=== PATIENT | female | born 1940 | race Caucasian/White ===

== ENCOUNTER 2016-08-08 13:37 | Outpatient (RCR) | payer MEDICARE, BC ==
[~2016-08-08 13:37] MED LIST: ADV250-14 IH; ALBU0.632 INH; ALBU8.5H2 INH; CYAN10007 PO; DABI150C2 PO; DIGO125T PO; ESCI10TA48 PO; ESCI5TAB PO; HYDR25TA4 PO; LEVO137T24 PO; LOSA1TAB23 PO; MECL25TA56 PO; NF-ESOM40C PO; NF-TYLARTH PO; NIFE30TA94 PO; NIFE60TA78 PO; OLME40TA16 PO; PRD20T PO; RT-COMBINH INH
== END 2016-08-29 16:24 | disposition home or self-care (01) ==
PROVIDERS: ATTEND Orthopaedic Surgery
DX: M75.01 Adhesive capsulitis of right shoulder (principal)

== ENCOUNTER 2017-02-06 10:51 | Inpatient (IN) | payer MEDICARE, BC ==
[2017-02-06] VITALS (11 sets, daily range): BP systolic 89–135; BP diastolic 61–91
[~2017-02-06] VITALS: Ht 165.1 cm; Wt 110.7 kg
[~2017-02-06 10:51] MED LIST changes: +OLME40TA12 PO; -OLME40TA16 PO
--- OUTSIDE RECORDS SUMMARY | 2017-02-06 13:03 | XMS REPORT | Continuity of Care Document ---
Author Author [facility] Organization [facility] Address Unknown Phone Unavailable Allergies Active Description Code Type Severity Reaction Onset Reported/Identified Relationship to Patient Clinical Status Yes PCN,Codiene,Iodine,IVP Dye, Nylon, Metal, bandaids PCN,Codiene,Iodine,IVP Dye, Nylon, Metal, bandaids Unknown N/A 02/18/2014 Medications Problems Date Dx Coded Attending Type Code Diagnosis Diagnosed By 04/17/1623 REG BLACK DO Ot M75.01 ADHESIVE CAPSULITIS OF RIGHT SHOULDER 01/20/2013 SAMANTA MINER MD Ot 305.1 TOBACCO USE DISORDER 01/20/2013 SAMANTA MINER MD Ot 401.9 HYPERTENSION NOS 01/20/2013 SAMANTA MINER MD Ot 414.01 CORONARY ATHEROSCLEROSIS OF [place] CORON 01/20/2013 SAMANTA MINER MD Ot 424.0 MITRAL VALVE DISORDER 01/20/2013 SAMANTA MINER MD Ot 427.31 ATRIAL FIBRILLATION 01/20/2013 SAMANTA MINER MD Ot 429.3 CARDIOMEGALY 01/20/2013 SAMANTA MINER MD Ot 492.8 EMPHYSEMA NEC 01/20/2013 SAMANTA MINER MD Ot V15.08 ALLERGY TO RADIOGRAPHIC DYE 01/20/2013 SAMANTA MINER MD Ot V58.61 ANTICOAGULANTS,LT,CURRENT USE 01/20/2013 SAMNATA MINER MD Ot V58.66 LONG-TERM (CURRENT) USE OF ASPIRIN 01/20/2013 SAMANTA MINER MD Ot V58.69 OTH MED,LT,CURRENT USE 02/18/2014 ANTOLIN TALAMANTES MD Ot 244.9 HYPOTHYROIDISM NOS 02/18/2014 ANTOLIN TALAMANTES MD Ot 276.69 OTHER FLUID OVERLOAD 02/18/2014 ANTOLIN TALAMANTES MD Ot 278.00 OBESITY, NOS 02/18/2014 ANTOLIN TALAMANTES MD Ot 305.1 TOBACCO USE DISORDER 02/18/2014 ANTOLIN TALAMANTES MD Ot 311 DEPRESSIVE DISORDER NEC 02/18/2014 ANTOLIN TALAMANTES MD Ot 327.23 OBSTRUCTIVE SLEEP APNEA (ADULT) (PEDIATR 02/18/2014 ANTOLIN TALAMANTES MD Ot 386.11 BENIGN PARXYSMAL VERTIGO 02/18/2014 ANTOLIN TALAMANTES MD Ot 401.9 HYPERTENSION NOS 02/18/2014 ANTOLIN TALAMANTES MD Ot 424.0 MITRAL VALVE DISORDER 02/18/2014 ANTOLIN TALAMANTES MD Ot 424.1 AORTIC VALVE DISORDER 02/18/2014 ANTOLIN TALAMANTES MD Ot 427.81 SINOATRIAL NODE DYSFUNCT 02/18/2014 ANTOLIN TALAMANTES MD Ot 427.89 CARDIAC DYSRHYTHMIAS NEC 02/18/2014 ANTOLIN TALAMANTES MD Ot 493.90 ASTHMA, UNSPECIFIED 02/18/2014 ANTOLIN TALAMANTES MD Ot 715.36 LOC OSTEOARTH NOS-L/LEG 02/18/2014 ANTOLIN TALAMANTES MD Ot 799.02 HYPOXEMIA 02/18/2014 ANTOLIN TALAMANTES MD Ot E942.1 ADV EFF CARDIOTONICS 02/18/2014 ANTOLIN TALAMANTES MD Ot V04.81 ND FOR PROPHYLACTIC VACCIN AND INOCULATI 02/18/2014 ANTOLIN TALAMANTES MD Ot V12.54 PERSONAL HX OF TIA, CEREBRAL INFARCTION 02/18/2014 ANTOLIN TALAMANTES MD Ot V15.81 HX OF PAST NONCOMPLIANCE 02/18/2014 ANTOLIN TALAMANTES MD Ot V85.33 BODY MASS INDEX 33.0-33.9, ADULT 04/28/2015 KASANDRA RIVERS APRN Ot F17.210 NICOTINE DEPENDENCE, CIGARETTES, UNCOMPL 04/28/2015 KASANDRA RIVERS APRN Ot I51.7 CARDIOMEGALY 04/28/2015 KASANDRA RIVERS APRN Ot J44.1 CHRONIC OBSTRUCTIVE PULMONARY DISEASE W 12/27/2015 SAMANTA MINER MD Ot 397.0 TRICUSPID VALVE DISEASE 12/27/2015 SAMANTA MINER MD Ot 424.0 MITRAL VALVE DISORDER 12/27/2015 SAMANTA MINER MD Ot 786.09 RESPIRATORY ABNORM NEC 12/27/2015 SAMANTA MINER MD Ot 786.50 CHEST PAIN NOS 12/27/2015 SAMANTA MINER MD Ot 786.09 RESPIRATORY ABNORM NEC 12/27/2015 SAMANTA MINER MD Ot 786.50 CHEST PAIN NOS 12/27/2015 ALBIN ANN, ANTOLIN Pretty Ot 305.1 TOBACCO USE DISORDER 12/27/2015 ANTOLIN TALAMANTES MD Ot 786.2 COUGH 12/27/2015 ANTOLIN TALAMANTES MD Ot V76.12 OTH SCREEN MAMMO-MALIGN NEOPLASM OF HAM 12/27/2015 JAMAL HARVEY DO Ot 278.00 OBESITY, NOS 12/27/2015 JAMAL HARVEY DO Ot 300.00 ANXIETY STATE NOS 12/27/2015 JAMAL HARVEY DO Ot 305.1 TOBACCO USE DISORDER 12/27/2015 JAMAL HARVEY DO Ot 427.31 ATRIAL FIBRILLATION 12/27/2015 JAMAL HARVEY DO Ot 496 CHR AIRWAY OBSTRUCT NEC 12/27/2015 JAMAL HARVEY DO Ot 786.05 SHORTNESS OF BREATH 01/01/2016 [facility] Ot E78.2 MIXED HYPERLIPIDEMIA 01/01/2016 [facility] Ot I10 ESSENTIAL (PRIMARY) HYPERTENSION 01/01/2016 [facility] Ot I25.10 ATHSCL HEART DISEASE OF [place] CORONARY 01/01/2016 B[facility] Ot I48.0 PAROXYSMAL ATRIAL FIBRILLATION 01/01/2016 SAMANTA MINER MD Ot I10 ESSENTIAL (PRIMARY) HYPERTENSION 01/01/2016 SAMANTA MINER MD Ot I25.10 ATHSCL HEART DISEASE OF [place] CORONARY 01/01/2016 SAMANTA MINER MD Ot I48.0 PAROXYSMAL ATRIAL FIBRILLATION 01/01/2016 SAMANTA MINER MD Ot J43.9 EMPHYSEMA, UNSPECIFIED 01/01/2016 SAMANTA MINER MD Ot Z72.0 TOBACCO USE 01/01/2016 SAMANTA MINER MD Ot Z79.01 SCHEDULER CONVEYOR (CURRENT) USE OF ANTICOAGULANT 01/01/2016 SAMANTA MINER MD Ot Z79.899 OTHER USP (CURRENT) DRUG THERAPY 01/09/2016 ANTOLIN TALAMANTES MD Ot V76.12 OTH SCREEN MAMMO-MALIGN NEOPLASM OF HAM 01/09/2016 JAMAL HARVEY DO Ot 278.00 OBESITY, NOS 01/09/2016 JAMAL HARVEY DO Ot 300.00 ANXIETY STATE NOS 01/09/2016 JAMAL HARVEY DO Ot 305.1 TOBACCO USE DISORDER 01/09/2016 JAMAL HARVEY DO Ot 427.31 ATRIAL FIBRILLATION 01/09/2016 JAMAL HARVEY DO Ot 496 CHR AIRWAY OBSTRUCT NEC 01/09/2016 JAMAL HARVEY DO Ot 786.05 SHORTNESS OF BREATH 01/09/2016 SAMANTA MINER MD Ot I10 ESSENTIAL (PRIMARY) HYPERTENSION 01/09/2016 SAMANTA MINER MD Ot I25.10 ATHSCL HEART DISEASE OF [place] CORONARY 01/09/2016 SAMANTA MINER MD Ot I48.0 PAROXYSMAL ATRIAL FIBRILLATION 01/09/2016 SAMANTA MINER MD Ot J43.9 EMPHYSEMA, UNSPECIFIED 01/09/2016 SAMANTA MINER MD Ot Z72.0 TOBACCO USE 01/09/2016 SAMANTA MINER MD Ot Z79.01 SCHEDULER CONVEYOR (CURRENT) USE OF ANTICOAGULANT 01/09/2016 SAMANTA MINER MD Ot Z79.899 OTHER SCHEDULER CONVEYOR (CURRENT) DRUG THERAPY 01/09/2016 [facility] Ot E78.2 MIXED HYPERLIPIDEMIA 01/09/2016 [facility] Ot I10 ESSENTIAL (PRIMARY) HYPERTENSION 01/09/2016 [facility] Ot I25.10 ATHSCL HEART DISEASE OF [place] CORONARY 01/09/2016 [facility] Ot I48.0 PAROXYSMAL ATRIAL FIBRILLATION 01/15/2016 [facility] Ot E78.2 MIXED HYPERLIPIDEMIA 01/15/2016 [facility] Ot I10 ESSENTIAL (PRIMARY) HYPERTENSION 01/15/2016 [facility] Ot I25.10 ATHSCL HEART DISEASE OF [place] CORONARY 01/15/2016 [facility] Ot I48.0 PAROXYSMAL ATRIAL FIBRILLATION 01/19/2016 SAMANTA MINER MD Ot I10 ESSENTIAL (PRIMARY) HYPERTENSION 01/19/2016 SAMANTA MINER MD Ot I25.10 ATHSCL HEART DISEASE OF [place] CORONARY 01/19/2016 SAMANTA MINER MD Ot I48.0 PAROXYSMAL ATRIAL FIBRILLATION 01/19/2016 SAMANTA MINER MD, Ot J43.9 EMPHYSEMA, UNSPECIFIED 01/19/2016 SAMANTA MINER MD Ot Z72.0 TOBACCO USE 01/19/2016 SAMANTA MINER MD Ot Z79.01 SCHEDULER CONVEYOR (CURRENT) USE OF ANTICOAGULANT 01/19/2016 SAMANTA MINER MD Ot Z79.899 OTHER USP (CURRENT) DRUG THERAPY 01/19/2016 [facility] Ot E78.2 MIXED HYPERLIPIDEMIA 01/19/2016 [facility] Ot I10 ESSENTIAL (PRIMARY) HYPERTENSION 01/19/2016 [facility] Ot I25.10 ATHSCL HEART DISEASE OF [place] CORONARY 01/19/2016 [facility] Ot I48.0 PAROXYSMAL ATRIAL FIBRILLATION 08/01/2016 SAMANTA MINER MD Ot 397.0 TRICUSPID VALVE DISEASE 08/01/2016 SAMANTA MINER MD Ot 424.0 MITRAL VALVE DISORDER 08/01/2016 SAMANTA MINER MD Ot 786.09 RESPIRATORY ABNORM NEC 08/01/2016 SAMANTA MINER MD Ot 786.50 CHEST PAIN NOS 08/01/2016 SAMANTA MINER MD Ot 786.09 RESPIRATORY ABNORM NEC 08/01/2016 SAMANTA MINER MD Ot 786.50 CHEST PAIN NOS 08/01/2016 ANTOLIN TALAMANTES MD Ot 305.1 TOBACCO USE DISORDER 08/01/2016 ANTOLIN TALAMANTES MD Ot 786.2 COUGH 08/01/2016 ANTOLIN TALAMANTES MD Ot V76.12 OTH SCREEN MAMMO-MALIGN NEOPLASM OF HAM 08/01/2016 JAMAL HARVEY DO Ot 278.00 OBESITY, NOS 08/01/2016 JAMAL HARVEY DO Ot 300.00 ANXIETY STATE NOS 08/01/2016 JAMAL HARVEY DO Ot 305.1 TOBACCO USE DISORDER 08/01/2016 JAMAL HARVEY DO Ot 427.31 ATRIAL FIBRILLATION 08/01/2016 JAMAL HARVEY DO Ot 496 CHR AIRWAY OBSTRUCT NEC 08/01/2016 JAMAL HARVEY DO Ot 786.05 SHORTNESS OF BREATH 08/01/2016 SAMANTA MINER MD Ot I10 ESSENTIAL (PRIMARY) HYPERTENSION 08/01/2016 SAMANTA MINER MD Ot I25.10 ATHSCL HEART DISEASE OF [place] CORONARY 08/01/2016 SAMANTA MINER MD Ot I48.0 PAROXYSMAL ATRIAL FIBRILLATION 08/01/2016 SAMANTA MINER MD Ot J43.9 EMPHYSEMA, UNSPECIFIED 08/01/2016 SAMANTA MINER MD Ot Z72.0 TOBACCO USE 08/01/2016 SAMANTA MINER MD Ot Z79.01 SCHEDULER CONVEYOR (CURRENT) USE OF ANTICOAGULANT 08/01/2016 SAMANTA MINER MD Ot Z79.899 OTHER SCHEDULER CONVEYOR (CURRENT) DRUG THERAPY 08/01/2016 [facility] Ot E78.2 MIXED HYPERLIPIDEMIA 08/01/2016 [facility] Ot I10 ESSENTIAL (PRIMARY) HYPERTENSION 08/01/2016 [facility] Ot I25.10 ATHSCL HEART DISEASE OF [place] CORONARY 08/01/2016 [facility] Ot I48.0 PAROXYSMAL ATRIAL FIBRILLATION 08/08/2016 SAMANTA MINER MD Ot 397.0 TRICUSPID VALVE DISEASE 08/08/2016 SAMANTA MINER MD Ot 424.0 MITRAL VALVE DISORDER 08/08/2016 SAMANTA MINER MD Ot 786.09 RESPIRATORY ABNORM NEC 08/08/2016 SAMANTA MINER MD Ot 786.50 CHEST PAIN NOS 08/08/2016 SAMANTA MINER MD Ot 786.09 RESPIRATORY ABNORM NEC 08/08/2016 SAMANTA MINER MD Ot 786.50 CHEST PAIN NOS 08/08/2016 ANTOLIN TALAMANTES MD Ot 305.1 TOBACCO USE DISORDER 08/08/2016 ANTOLIN TALAMANTES MD Ot 786.2 COUGH 08/08/2016 ANTOLIN TALAMANTES MD Ot V76.12 OTH SCREEN MAMMO-MALIGN NEOPLASM OF HAM 08/08/2016 JAMAL HARVEY DO Ot 278.00 OBESITY, NOS 08/08/2016 JAMAL HARVEY DO Ot 300.00 ANXIETY STATE NOS 08/08/2016 JAMAL HARVEY DO Ot 305.1 TOBACCO USE DISORDER 08/08/2016 JAMAL HARVEY DO Ot 427.31 ATRIAL FIBRILLATION 08/08/2016 JAMAL HARVEY DO Ot 496 CHR AIRWAY OBSTRUCT NEC 08/08/2016 JAMAL HARVEY DO Ot 786.05 SHORTNESS OF BREATH 08/08/2016 SAMANTA MINER MD Ot I10 ESSENTIAL (PRIMARY) HYPERTENSION 08/08/2016 SAMANTA MINER MD Ot I25.10 ATHSCL HEART DISEASE OF [place] CORONARY 08/08/2016 SAMANTA MINER MD Ot I48.0 PAROXYSMAL ATRIAL FIBRILLATION 08/08/2016 SAMANTA MINER MD Ot J43.9 EMPHYSEMA, UNSPECIFIED 08/08/2016 SAMANTA MINER MD Ot Z72.0 TOBACCO USE 08/08/2016 SAMANTA MINER MD Ot Z79.01 SCHEDULER CONVEYOR (CURRENT) USE OF ANTICOAGULANT 08/08/2016 SAMANTA MINER MD Ot Z79.899 OTHER SCHEDULER CONVEYOR (CURRENT) DRUG THERAPY 08/08/2016 [facility] Ot E78.2 MIXED HYPERLIPIDEMIA 08/08/2016 [facility] Ot I10 ESSENTIAL (PRIMARY) HYPERTENSION 08/08/2016 [facility] Ot I25.10 ATHSCL HEART DISEASE OF [place] CORONARY 08/08/2016 B[facility] Ot I48.0 PAROXYSMAL ATRIAL FIBRILLATION 08/29/2016 REG BLACK DO Ot M75.01 ADHESIVE CAPSULITIS OF RIGHT SHOULDER Procedures Results Encounters ACCT No. Visit Date/Time Discharge Status Pt. Type Provider Facility Loc./Unit Complaint [id number] 08/08/2016 13:37:00 2016 16:24:00 DIS Outpatient REG BLACK DO [facility] REHAB RIGHT SHOULDER ADHESIVE CAPSULITIS [id number] 12/29/2015 11:58:00 2015 23:59:59 CLS Outpatient BINH WE[facility] CARD AFIB, CAD,HTN,HLP [id number] 12/27/2015 09:11:00 2015 23:59:59 CLS Outpatient SAMANTA MINER MD [facility] CATH AFIB,PALPITATIONS [id number] 04/28/2015 12:41:00 2014 14:40:00 DIS Emergency KASANDRA RIVERS APRN [facility] ER COUGH [id number] 02/18/2014 00:11:00 2013 11:10:00 DIS Inpatient ANTOLIN TALAMANTES MD [facility] CSD HYPOXIA FLUID OVERLOAD LIGHTHEADED VERTIGO [id number] 05/27/2013 15:14:00 2013 23:59:59 CLS Outpatient WES GONZALES JAMAL Rich [facility] RT COPD, EMPHYSEMA [id number] 05/05/2013 15:01:00 2012 23:59:59 CLS Outpatient ANTOLIN TALAMANTES MD [facility] RAD SCREENING [id number] 01/20/2013 12:57:00 2012 16:20:00 DIS Outpatient SAMANTA MINER MD [facility] CATH A-FIB [id number] 01/11/2013 07:46:00 2012 23:59:59 CLS Outpatient SAMANTA MINER MD [facility] RAD CP,DYSPNEA [id number] 12/31/2012 12:47:00 2012 23:59:59 CLS Outpatient SAMANTA MINER MD [facility] CARD CP,DYSPNEA [id number] 12/11/2012 10:17:00 2012 23:59:59 CLS Outpatient ANTOLIN TALAMANTES MD [facility] RAD ELEVATED COUGH,TOBACCOISM
[2017-02-06] MEDS ORDERED: DILTIAZEM 25 MG/5 ML INJ (CARDIZEM) VIAL IVP NR (13:30)
[2017-02-06] MEDS: DILTIAZEM DRIP 100 MG in SODIUM CHLORIDE (ADD-VANTAGE) 100 ML IV SCH (13:44)
[2017-02-06 14:23] LABS: MEAN PLATELET VOLUME 12.5 FL (7.4-10.4); RED BLOOD COUNT 4.97 10^6/uL (4.35-5.85); RED CELL DISTRIBUTION WIDTH 14.3 % (10.0-14.5)
[2017-02-06 14:32] LABS: INR 1.2 (0.8-1.4); PROTHROMBIN TIME PATIENT 14.9 SEC (12.2-14.7)
[2017-02-06 14:40] LABS: ALANINE AMINOTRANSFERASE 15 U/L (0-55); ALBUMIN 3.7 GM/DL (3.2-4.5); ANION GAP 11 MMOL/L (5-14); ASPARTATE AMINO TRANSFERASE 17 U/L (5-34); BILIRUBIN,TOTAL 0.6 MG/DL (0.1-1.0); BLOOD UREA NITROGEN 13 MG/DL (7-18); BUN/CREATININE RATIO 12; CALCIUM 9.2 MG/DL (8.5-10.1); CARBON DIOXIDE 25 MMOL/L (21-32); CHLORIDE 105 MMOL/L (98-107); CREATININE SERUM 1.05 MG/DL (0.60-1.30); GFR ESTIMATED 51; GLUCOSE 132 MG/DL (70-105); MAGNESIUM 1.4 MG/DL (1.8-2.4); POTASSIUM 3.4 MMOL/L (3.6-5.0); SODIUM 141 MMOL/L (135-145); TOTAL PROTEIN 6.9 GM/DL (6.4-8.2)
[2017-02-06 15:00] LABS: TROPONIN I < 0.30 NG/ML (<0.30)
[2017-02-06] MEDS ORDERED: LEVO125T PO (15:02)
[2017-02-06] MEDS ORDERED: FLUT1DIS26 INH (15:02)
[2017-02-06] MEDS ORDERED: CYAN10006 PO (15:02)
[2017-02-06] MEDS ORDERED: ACET-2267 PO (15:02)
[2017-02-06] MEDS ORDERED: OLME1TAB44 PO (15:02)
[2017-02-06] MEDS ORDERED: NYST60PO TOP (15:02)
[2017-02-06] MEDS ORDERED: ALBU0.63 NEB (15:02)
[2017-02-06] MEDS ORDERED: NIFE-7 PO (15:02)
[2017-02-06] MEDS ORDERED: NITR0.4T39 PO (15:02)
[2017-02-06] MEDS ORDERED: RT-ALBUINH IH (15:02)
[2017-02-06] MEDS ORDERED: OXYC-471 PO (15:02)
[2017-02-06] MEDS ORDERED: APIX5TAB PO (15:02)
[2017-02-06] MEDS ORDERED: ESOM20TA PO (15:02)
[2017-02-06] MEDS ORDERED: ESCI20TA45 PO (15:02)
--- NOTE | 2017-02-06 15:21 | Diagnostic Imaging Report ---
Upright AP and lateral views of the chest. INDICATION: Atrial fibrillation. COMPARISON: 04/28/2015. FINDINGS: There is mild/ moderate cardiac enlargement. There is mild pulmonary vascular congestion with suggestion of an element of chronic background interstitial thickening. No effusion or pneumothorax. Mediastinum and peter appear unremarkable. transformation lead projecting over the left chest wall anteriorly seen. IMPRESSION: Cardiomegaly with pulmonary vascular congestion. Dictated by: Dictated on workstation # [id number]
[2017-02-06] MEDS ORDERED: CATHETER FLUSH 10 ML SYR IV PRN (16:45)
[2017-02-06] MEDS ORDERED: NS IV 1000 ML 1,000 ML IV ONE (17:15)
[2017-02-06] MEDS ORDERED: RT-ADVAIR HFA 115/21 MCG PER PUFF IH PRN (20:00)
[2017-02-06] MEDS: APIXABAN 5 MG (ELIQUIS) TABLET PO SCH (21:21)
[2017-02-07] VITALS (24 sets, daily range): BP systolic 97–171; BP diastolic 61–117
[2017-02-07] MEDS: LEVOTHYROXINE 125 MCG (LEVOTHROID) TABLET PO SCH (06:40)
[2017-02-07] MEDS: DILTIAZEM DRIP 100 MG in SODIUM CHLORIDE (ADD-VANTAGE) 100 ML IV SCH (07:57)
[2017-02-07] MEDS ORDERED: LIDOCAINE 2% VISCOUS 15 ML UDC ONE (08:13)
[2017-02-07] MEDS ORDERED: proPOfol 200 MG/20 ML (DIPRIVAN) VIAL IV ONE ×2 (08:15→09:15)
[2017-02-07] MEDS ORDERED: NS IV 1000 ML 1,000 ML ONE (08:19)
--- NOTE | 2017-02-07 08:20 | Cardiology History & Physical ---
HPI-Cardiology Cardiology Consultation Date of Consultation 02/07/17 Date of Admission Time Seen by Provider: 08:17 Indication: atrial fibrillation HPI 76 years old lady with history of paroxysmal atrial fibrillation, coronary artery disease, seen in my office was in atrial fibrillation with rapid ventricular response, heart rate 130. She was having shortness of breath and active wheezing. I decided to admit her to the hospital start on Cardizem drip , this morning her heart rate is better controlled but still in atrial fibrillation. We discussed the management plan, discussed evaluating TERESO and possible electrical cardioversion. She denied any chest pain, her breathing is better today. She is overall feeling better. No palpitation. No syncope. PMH-Cardiology Immunizations Up To Date Tetanus Booster (DTap): Unknown Date of Pneumonia Vaccine: Jan 20, 2011 Date of Influenza Vaccine: Feb 20, 2012 Seasonal Allergies Seasonal Allergies: Yes Surgeries Yes (WEDGE RESECTION, breast reduction) Adenoidectomy, Gall Bladder, Appendectomy, Tonsillectomy, Breast, Orthopedic Respiratory Yes Cardiovascular Yes Atrial Fibrillation, Hypertension, Congestive Heart Failure Neurological Yes (pt reports having "small stroke" in ) Stroke Reproductive System Hx Reproductive Disorders: No Genitourinary No Gastrointestinal Yes Gastroesophageal Reflux Musculoskeletal No Endocrine Yes (hypoglycemia) Hypothyroidsim HEENT No Cancer No Psychosocial Yes Anxiety, Depression Integumentary No Blood Transfusions No Adverse Rxn to Transfusion: No Other PMHx past medical history as discussed below Social History Patient Social History Marrital Status: Employed/Student: retired Alcohol Use: Occasionally Uses Recreational Drug Use: No Smoking: Current every day smoker Dip or chew tobacco?: No Recent Foreign Travel: No Contact w/other who traveled: No Recent Infectious Disease Expo: No Family Hx Family History: Cardiovascular disease 19 FATHER 19 MOTHER Diabetes mellitus 19 MOTHER G8 BROTHER G8 SISTER Drug abuse G8 BROTHER G8 SISTER FH: lupus erythematosus Hypercholesterolemia 19 FATHER 19 MOTHER Hypertension 19 FATHER 19 MOTHER Myocardial infarction 19 FATHER 19 MOTHER ROS-Cardiology Review of Systems General: No Chills, No Night Sweats, No Fatigue, No Malaise, No Appetite HEENT: No Head Aches, No Visual Changes, No Eye Pain, No Ear Pain, No Dysphasia , No Sinus Congestion, No Post Nasal Drip, No Sore Throat Pulmonary: Dyspnea, No Cough, No Pleuritic Chest Pain Cardiovascular: Edema, No: Chest Pain, Palpitations, Orthopnea, Paroxysmal Noc. Dyspnea, Lt Headedness Gastrointestinal: No: Nausea, Vomiting, Abdominal Pain, Diarrhea, Constipation , Melena, Hematochezia Genitourinary: No Dysuria, No Frequency, No Incontinence, No Hematuria, No Retention Musculoskeletal: No: neck pain, shoulder pain, arm pain, back pain, hand pain, leg pain, foot pain Neurological: No: Weakness, Numbness, Incoordination, Change in speech, Confusion, Seizures Home Medications & Allergies Allergies: Uncoded Allergies: PCN,Codiene,Iodine,IVP Dye, Nylon, Metal, bandaids (Allergy, Unknown, ) Home Medication List Reviewed: Yes Exam-Cardiology Vital Signs Vital Signs Date Time Temp Pulse Resp B/P (MAP) Pulse Ox O2 Delivery O2 Flow Rate FiO2 02/07/17 07:57 97.6 77 12 140/94 92 02/07/17 07:57 Room Air 02/07/17 06:00 2.00 Exam General Appearance: Alert, Oriented X3, Cooperative, No Acute Distress HEENT: Atraumatic, PERRLA Respiratory: Clear to Auscultation, Normal Air Movement Cardiovascular: Normal S1, Normal S2, No Murmurs, Other (irregular rhythm, rate is better controlled) Abdominal: Normal Bowel Sounds, Soft, No Tenderness, No Hepatosplenomegaly, No Masses Extremities: No Clubbing, No Cyanosis, No Edema, Normal Pulses, No Tenderness/ Swelling Skin: No Rashes, No Breakdown, No Significant Lesion Neuro: Normal Gait, Normal Speech, Strength at 5/5 X4 Ext, Normal Tone, Sensation Intact Psych/Mental Status: Mental Status NL, Mood NL Results Labs Labs Laboratory Tests 02/06/17 14:00: White Blood Count 9.0, Red Blood Count 4.97, Hemoglobin 14.6, Hematocrit 43, Mean Corpuscular Volume 87, Mean Corpuscular Hemoglobin 29, Mean Corpuscular Hemoglobin Concent 34, Red Cell Distribution Width 14.3, Platelet Count 226, Mean Platelet Volume 12.5H, Prothrombin Time 14.9H, INR Comment 1.2, Activated Partial Thromboplast Time 32, Sodium Level 141, Potassium Level 3.4L, Chloride Level 105, Carbon Dioxide Level 25, Anion Gap 11, Blood Urea Nitrogen 13, Creatinine 1.05, Estimat Glomerular Filtration Rate 51, BUN/Creatinine Ratio 12 , Glucose Level 132H, Calcium Level 9.2, Magnesium Level 1.4L, Total Bilirubin 0.6, Aspartate Amino Transf (AST/SGOT) 17, Alanine Aminotransferase (ALT/SGPT) 15, Alkaline Phosphatase 73, Troponin I < 0.30, B-Type Natriuretic Peptide 226.0H, Total Protein 6.9, Albumin 3.7, Thyroid Stimulating Hormone (TSH) 0.10L A/P-Cardiology Admission Diagnosis paroxysmal atrial fibrillation Tachycardia Coronary artery disease Hypertension Shortness of breath Assessment/Plan Coronary artery disease, history of cardiac catheterization done in 2006 showing nonobstructive disease. Last stress test was done in December 2012 showed breast attenuation with mild ischemia at the mid to apical anterior wall. Currently asymptomatic. Patient is refusing cardiac catheterization, continue to monitor at this time Paroxysmal atrial fibrillation, back to atrial fibrillation with rapid ventricular response. Having history of wheezing and tachycardia, questionable intolerance to beta blockers, admitted and started on Cardizem drip, heart rate is better controlled, we discussed the management plan, planning for TERESO possible electrical cardioversion today. [id number] score is 2, yearly risk of stroke without oral anticoagulations 3.2 percent. Maintained on Eliquis 5 mg twice daily. Continue to monitor Tachycardia bradycardia episodes. Had episode of bradycardia on beta blockers. 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 Hypertension, I will continue monitoring blood pressure and adjust her medications. Hyperlipidemia, continue to monitor lipids. Pulmonary hypertension. PA pressure is 45 mmHg, secondary to COPD. COPD/emphysema. Chronic dyspnea. Follows with Dr. Roe Bilateral carotid stenosis, minimal bilaterally, nonobstructive disease, last ultrasound was done in June 2015. Continue to monitor. Tobaccoism, patient was educated and instructed on smoking cessation Severe allergy to IV contrast. Intolerance to MARCELINO inhibitor with severe cough. Chronic pedal edema, some improvement after hydrochlorothiazide was started. Depression. Right shoulder pain-I will refer to [id number] for further evaluation. Clinical Quality Measures DVT/VTE Risk/Contraindication: Risk Factor Score Per Nursin RFS Level Per Nursing on Admit: 4+=Very High SAMANTA MINER MD Feb 07, 2017 08:20
--- NOTE | 2017-02-07 08:21 | Cardiac Procedure Note-CS/ASA ---
Pre-Procedure Note Pre-Op Procedure Note H&P Reviewed The H&P was reviewed, patient examined and no changes noted. Date H&P Reviewed: Feb 07, 2017 Time H&P Reviewed: 08:21 Conscious Sedation Pre-Proced Time Reviewed: 08:21 ASA Class: 3 Airway Mallampati Classification: (hamilton appropriate class) I. II. III, IV Lungs Heart ASA score ASA 1: a normal healthy patient ASA 2: a patient with a mild systemic disease (mid diabetes, controlled hypertension, obesity x ASA 3: a patient with a severe systemic disease that limits activity (angina , COPD, prior Myocardial infarction) ASA 4: a patient with an incapacitating disease that is a constant threat to life (CHF, renal failure) ASA 5: a moribund patient not expected to survive 24 hrs. (ruptured aneurysm) ASA 6: a declared brain patient whose organs are being harvested. For emergent operations, add the letter E after the classification Grade 3 Sedation Plan: Analgesia, Amnesia, Plan communicated to team members, Discussed options with patient/fam, Discussed risks with patient/fam Note The patient is an appropriate candidate to undergo the planned procedure, sedation, and anesthesia. The patient immediately re-assessed prior to indication. SAMANTA MINER MD Feb 07, 2017 08:21
--- NOTE | 2017-02-07 08:27 | Consultation-Hospitalist ---
HPI History of Present Illness: HPI/Chief Complaint CC: "extreme tiredness" HPI: Pt is a 76yoCF who was directed admitted by Dr. Diaz for a-fib with RVR noted on event monitor. She reports her symptoms started on Friday after driving to and from [place]. She started to feel very tired and SOB. She states she laid in bed from Friday evening until Friday due to her fatigue. She also noticed that her blood pressure had been uncontrolled lately. She was called yesterday morning by Dr. Diaz's office and advised to present for direct admission due to her monitor showing a-fib with RVR. She states this has happened multiple times in the past and this is how she always feels when she's in a-fib. Source: patient, RN/MD, old records Exam Limitations: no limitations Date Seen 02/07/17 Attending Physician Yara Diaz MD PCP Ajith Stark MD Referring Physician Yara Diaz Date of Admission Feb 06, 2017 at 12:58 Home Medications & Allergies Home Medications Reviewed patient Home Medication Reconciliation Form Allergies Allergies Uncoded Allergies PCN,Codiene,Iodine,IVP Dye, Nylon, Metal, bandaids ( Allergy, Unknown, 02/18/14 ) Past Iwalonu-Rmljzt-Qqdslm Hx Patient Social History Marrital Status: Employed/Student: retired Alcohol Use: Occasionally Uses Number of Drinks Today: 0 Recreational Drug Use: No Smoking Status: Current Everyday Smoker Type Used: Cigarettes Physical Abuse Screen: No Sexual Abuse: No Recent Foreign Travel: No Contact w/other who traveled: No Recent Hopitalizations: No Recent Infectious Disease Expo: No Immunizations Up To Date Tetanus Booster (TDap): Unknown Pediatric: No Date of Pneumonia Vaccine: Jan 20, 2011 Date of Influenza Vaccine: Feb 20, 2012 Seasonal Allergies Seasonal Allergies: Yes Surgeries Yes (WEDGE RESECTION, breast reduction) Abdominal, Appendectomy, Gallbladder, Hysterectomy, Orthopedic, Tonsillectomy Respiratory Yes Currently Using CPAP: Yes (hasn't used since of S.O.) Cardiovascular Yes Atrial Fibrillation, Hypertension Neurological Yes (pt reports having "small stroke" in ) Stroke Reproductive System Hx Reproductive Disorders: No Genitourinary No Gastrointestinal Yes Gastroesophageal Reflux Musculoskeletal No Endocrine History of Endocrine Disorders: Yes (hypoglycemia) Endocrine Disorders: Hypothyroidsim HEENT History of HEENT Disorders: No Cancer No Psychosocial History of Psychiatric Problem: Yes Behavioral Health Disorders: Anxiety, Depression Integumentary History of Skin or Integumenta: No Blood Transfusions History of Blood Disorders: No Adverse Reaction to a Blood Tr: No Family Medical History Family Hx: Cardiovascular disease 19 FATHER 19 MOTHER Diabetes mellitus 19 MOTHER G8 BROTHER G8 SISTER Drug abuse G8 BROTHER G8 SISTER FH: lupus erythematosus Hypercholesterolemia 19 FATHER 19 MOTHER Hypertension 19 FATHER 19 MOTHER Myocardial infarction 19 FATHER 19 MOTHER Review of Systems Constitutional: weakness EENTM: no symptoms reported Respiratory: short of breath Cardiovascular: palpitations Gastrointestinal: loss of appetite Genitourinary: no symptoms reported Musculoskeletal: no symptoms reported Skin: no symptoms reported Psychiatric/Neurological: Depressed Physical Exam Physical Exam Vital Signs Vital Sign - Last 12Hours 02/06/17 02/06/17 13:25 19:00 Temp 97.7 Pulse 155 Resp 27 B/P (MAP) 125/82 Pulse Ox 95 O2 Delivery Room Air O2 Flow Rate 2.00 Capillary Refill : General Appearance: No Apparent Distress, WD/WN HEENT: PERRL/EOMI, Moist Mucous Membranes Neck: Supple Respiratory: Lungs Clear, No Respiratory Distress Cardiovascular: No Murmur, Irregularly Irregular Gastrointestinal: Normal Bowel Sounds, Non Tender, Soft Neurologic/Psychiatric: Alert, Oriented x3, No Aphasia Results Results/Procedures Lab Laboratory Tests 02/06/17 14:00 Assessment/Plan Admission Diagnosis A-fib with RVR Diagnosis/Problems Diagnosis/Problems (1) Atrial fibrillation with RVR Assessment & Plan: Long history of a-fib Rate well controlled on cardizem gtt Plan for cardioversion today per Dr. Diaz On Eliquis for anticoagulation (2) Hypothyroidism Status: Chronic Assessment & Plan: Continue home Synthroid (3) Essential (primary) hypertension Assessment & Plan: Well controlled currently on Cardizem (4) COPD (chronic obstructive pulmonary disease) Status: Chronic Assessment & Plan: Continue home inhalers No signs of acute exacerbation (5) Depression Status: Chronic Assessment & Plan: Reports mood has been down since SO Dottie in September Continue Lexapro when PO-ing (6) Prophylactic measure Assessment & Plan: Eliquis for anticoagulation, no further DVT ppx needed NPO for cardioversion Clinical Quality Measures DVT/VTE Risk/Contraindication: Risk Factor Score Per Nursin RFS Level Per Nursing on Admit: 4+=Very High ZANDRA,HALIMA M MD Feb 07, 2017 08:27
[2017-02-07] MEDS ORDERED: AMIODARONE FOR BOLUS 150 MG in D5W 100 ML IVPB 100 ML IV NR (08:45)
--- NOTE | 2017-02-07 08:45 | Cardiac Procedure Note ---
Cardiology Procedures Date of Procedure 02/07/17 BRIEF HISTORY: The patient is a 76 female with history of paroxysmal atrial fibrillation, admitted with atrial fibrillation and rapid ventricular response.. PROCEDURE NOTE: After explaining the procedure to the patient, all pros and cons were explained. The patient was sedated with assistance of anesthesia, DC cardioversion was delivered with 120 J and it was successful in terminating atrial fibrillation patient in sinus rhythm. IN CONCLUSION: Successful electrical cardioversion and terminating atrial fibrillation, patient maintained sinus rhythm. SAMANTA MINER MD Feb 07, 2017 08:45
--- NOTE | 2017-02-07 08:52 | Anesthesia-Procedure Note ---
Procedure Start/Stop Time Date of Procedure: Feb 07, 2017 Start Time: 08:30 Stop Time: 08:46 Procedures/Interventions Procedures Called by ICU staff to sedate patient for TERESO/Cardioversion. Chart reviewed. Patient ASA 3 with MP 3. A total of 130mg of propofol was given thru procedure. Patient tolerated well and care was turned over to ICU staff. ESTUARDO LISA CRNA Feb 07, 2017 08:52
[2017-02-07] MEDS ORDERED: LIDOCAINE 2% VISCOUS 15 ML UDC PO ONE (09:00)
[2017-02-07] MEDS ORDERED: NS IV 1000 ML 1,000 ML IV ONE (09:00)
[2017-02-07] MEDS: AMIODARONE INJECTION 450 MG in D5W IV SOLUTION (EXCEL) 250 ML IV SCH ×3 (09:19→18:58)
[2017-02-07] MEDS: APIXABAN 5 MG (ELIQUIS) TABLET PO SCH ×2 (11:02→21:46)
[2017-02-07] MEDS ORDERED: oxyCODONE/APAP 5/325MG (PERCOCET 5) TABLET PO PRN (12:00)
[2017-02-07] MEDS ORDERED: NON-FORMULARY MEDICATION 1 EA EA (Albuterol Sulfate 0.63 MG) NEB PRN (12:00)
[2017-02-07] MEDS ORDERED: RT-ALBUTEROL SULF 2.5 MG/3 ML PRE-MIX VIAL IH PRN (12:30)
[2017-02-07] MEDS: guaiFENesin/DM (ROBITUSSIN DM) 10 ML UDC PO PRN ×2 (15:45→21:46)
[2017-02-07] MEDS: BENZONATATE 100 MG (TESSALON) CAPSULE PO SCH (21:46)
[2017-02-07] MEDS: ACETAMINOPHEN 500 MG TAB (TYLENOL) PO PRN (21:46)
[2017-02-08] VITALS (16 sets, daily range): BP systolic 109–158; BP diastolic 42–91
[2017-02-08] MEDS: ACETAMINOPHEN 500 MG TAB (TYLENOL) PO PRN (04:23)
[2017-02-08 05:16] LABS: BASOPHILS % (AUTO) 0 % (0-10); EOSINOPHILS # (AUTO) 0.3 10^3/uL (0.0-0.3); EOSINOPHILS % (AUTO) 5 % (0-10); LYMPHOCYTES # (AUTO) 1.6 X 10^3 (1.0-4.0); LYMPHOCYTES % (AUTO) 28 % (12-44); MEAN CORPUSCULAR HEMOGLOBIN 30 PG (25-34); MEAN CORPUSCULAR HGB CONC 33 G/DL (32-36); MEAN CORPUSCULAR VOLUME 89 FL (80-99); MEAN PLATELET VOLUME 12.2 FL (7.4-10.4); MONOCYTES # (AUTO) 0.6 X 10^3 (0.0-1.0); MONOCYTES % (AUTO) 10 % (0-12); NEUTROPHILS # (AUTO) 3.3 X 10^3 (1.8-7.8); NEUTROPHILS % (AUTO) 57 % (42-75); PLATELET COUNT 184 10^3/uL (130-400); RED BLOOD COUNT 4.35 10^6/uL (4.35-5.85); RED CELL DISTRIBUTION WIDTH 14.1 % (10.0-14.5); WHITE BLOOD COUNT 5.8 10^3/uL (4.3-11.0)
[2017-02-08 05:36] LABS: ALANINE AMINOTRANSFERASE 14 U/L (0-55); ALBUMIN 3.3 GM/DL (3.2-4.5); ANION GAP 9 MMOL/L (5-14); ASPARTATE AMINO TRANSFERASE 18 U/L (5-34); BILIRUBIN,TOTAL 0.6 MG/DL (0.1-1.0); BLOOD UREA NITROGEN 12 MG/DL (7-18); BUN/CREATININE RATIO 14; CALCIUM 8.7 MG/DL (8.5-10.1); CARBON DIOXIDE 24 MMOL/L (21-32); CHLORIDE 108 MMOL/L (98-107); CREATININE SERUM 0.87 MG/DL (0.60-1.30); GFR ESTIMATED > 60; GLUCOSE 122 MG/DL (70-105); MAGNESIUM 1.7 MG/DL (1.8-2.4); PHOSPHORUS 3.5 MG/DL (2.3-4.7); POTASSIUM 3.9 MMOL/L (3.6-5.0); SODIUM 141 MMOL/L (135-145); TOTAL PROTEIN 6.2 GM/DL (6.4-8.2)
[2017-02-08] MEDS ORDERED: KCL 20 MEQ TAB (K-DUR) PO SCH (06:00)
[2017-02-08] MEDS: MAGNESIUM 1 GM/100 ML IVPB 100 ML IV SCH ×4 (06:00→08:18)
[2017-02-08] MEDS ORDERED: POTASSIUM CL 10MEQ/50ML IVPB 50 ML IV SCH (06:00)
[2017-02-08] MEDS: LEVOTHYROXINE 125 MCG (LEVOTHROID) TABLET PO SCH (07:54)
[2017-02-08] MEDS: APIXABAN 5 MG (ELIQUIS) TABLET PO SCH (08:15)
[2017-02-08] MEDS: BENZONATATE 100 MG (TESSALON) CAPSULE PO SCH ×2 (08:15→12:30)
[2017-02-08] MEDS ORDERED: AMIODARONE 200 MG (CORDARONE) TAB PO NR (08:15)
--- NOTE | 2017-02-08 08:16 | Progress Note-Hospitalist ---
Subjective HPI/CC On Admission Date Seen by Provider: Feb 08, 2017 Time Seen by Provider: 07:40 CC: "extreme tiredness" HPI: Pt is a 76yoCF who was directed admitted by Dr. Diaz for a-fib with RVR noted on event monitor. She reports her symptoms started on Friday after driving to and from [place]. She started to feel very tired and SOB. She states she laid in bed from Friday evening until Friday due to her fatigue. She also noticed that her blood pressure had been uncontrolled lately. She was called yesterday morning by Dr. Diaz's office and advised to present for direct admission due to her monitor showing a-fib with RVR. She states this has happened multiple times in the past and this is how she always feels when she's in a-fib. Subjective/Events-last exam Pt reports feeling better today since her cardioversion. She is ready to DC home. Objective Exam Vital Signs Vital Sign - Last 12Hours 02/06/17 02/06/17 02/07/17 13:25 19:00 15:52 Temp 97.7 Pulse 155 Resp 27 B/P (MAP) 125/82 Pulse Ox 95 O2 Delivery Room Air O2 Flow Rate 2.00 FiO2 28 Capillary Refill : General Appearance: No Apparent Distress, WD/WN Respiratory: No Accessory Muscle Use, No Respiratory Distress, Wheezing Cardiovascular: No JVD, No Murmur, Normal Peripheral Pulses, Bradycardia Gastrointestinal: Normal Bowel Sounds, Non Tender, Soft Neurologic/Psychiatric: Alert, Oriented x3 Results/Procedures Lab Laboratory Tests 02/08/17 04:33 Assessment/Plan Assessment and Plan Assess & Plan/Chief Complaint a-fib with RVR Diagnosis/Problems Diagnosis/Problems (1) Atrial fibrillation with RVR Assessment & Plan: Long history of a-fib Converted to sinus rhythm with cardioversion yesterday Currently on amio gtt On Eliquis for anticoagulation Managed per primary (Cards) (2) Hypothyroidism Status: Chronic Assessment & Plan: Continue home Synthroid (3) Essential (primary) hypertension Assessment & Plan: Well controlled (4) COPD (chronic obstructive pulmonary disease) Status: Chronic Assessment & Plan: Continue home inhalers No signs of acute exacerbation Resumed home tessalon (5) Depression Status: Chronic Assessment & Plan: Reports mood has been down since SO Dottie in September Continue Lexapro (6) Prophylactic measure Assessment & Plan: Eliquis for anticoagulation, no further DVT ppx needed Diet Saline Lock OK to [place] home from my standpoint HALIMA DE PAZ MD Feb 08, 2017 08:16
[2017-02-08] MEDS ORDERED: BENZ-36 PO (08:19)
[2017-02-08] MEDS ORDERED: NON-FORMULARY MEDICATION 1 EA EA (Escitalopram Oxalate 20 MG) PO SCH (09:00)
--- NOTE | 2017-02-08 12:09 | Diagnostic Imaging Report ---
INDICATION: Shortness of breath COMPARISON: 02/06/17 FINDINGS: Single view of the chest demonstrates cardiac enlargement with chronic interstitial changes. Superimposed acute process not excluded. There is no pneumothorax or large effusion. IMPRESSION: Chronic interstitial changes with possibly superimposed central vascular congestion or trace pulmonary edema. Dictated by: Dictated on workstation # [id number]
[2017-02-08] MEDS ORDERED: OLMESARTAN 20 MG (BENICAR) TABLET PO SCH (12:15)
[2017-02-08] MEDS ORDERED: NON-FORMULARY MEDICATION 1 EA EA (Olmesartan/Hydrochlorothiazide (Olmesartan-Hctz 40-25 mg PO SCH (12:15)
[2017-02-08] MEDS ORDERED: HYDROCHLOROTHIAZIDE 25 MG (HCTZ) TAB PO SCH (12:15)
[2017-02-08] MEDS: guaiFENesin/DM (ROBITUSSIN DM) 10 ML UDC PO PRN (12:30)
--- NOTE | 2017-02-08 12:31 | Cardiology Progress Note ---
Cardiology SOAP Progress Note Subjective: no cardiac symptoms Objective: I&O/Vital Signs Vital Sign - Last 12Hours 02/08/17 02/08/17 02/08/17 02/08/17 01:00 01:00 02:00 03:00 Pulse 56 59 51 57 Resp 20 27 13 B/P (MAP) 109/62 132/87 147/80 Pulse Ox 90 94 93 O2 Delivery Room Air Room Air Room Air 02/08/17 02/08/17 02/08/17 02/08/17 04:00 04:00 05:00 06:00 Pulse 53 50 51 Resp 34 17 17 B/P (MAP) 128/76 142/88 129/87 Pulse Ox 93 92 93 O2 Delivery Room Air Room Air Room Air Room Air 02/08/17 02/08/17 02/08/17 02/08/17 07:00 07:00 08:00 08:22 Temp 97.5 Pulse 49 50 49 Resp 14 14 B/P (MAP) 139/78 158/91 Pulse Ox 95 95 O2 Delivery Room Air Room Air Room Air 02/08/17 02/08/17 02/08/17 02/08/17 08:30 09:00 10:00 11:00 Pulse 55 52 51 Resp 16 18 17 B/P (MAP) 125/70 125/70 125/70 Pulse Ox 91 93 91 O2 Delivery Room Air Room Air Room Air Room Air Weight (Pounds): 244 Weight (Ounces): 5.0 Weight (Calculated Kilograms): 110.641964 Constitutional: No appears stated age, No AAO x 3, No apparent distress, No PERRL, No well-developed, No well-nourished, No other Respiratory: wheezing Cardiovascular: No regular rate-rhythm, No irregularly irregular, No extra beats, No parasternal heave is noted, No JVD, No edema, No bradycardia, No tachycardia, No point of maximal impulse, No cardiac thrills are palpable, No S1 and S2, No gallop/S3, No gallop/S4, No diastolic murmur, No systolic murmur, No friction rub, No click, No other Gastrointestional: No tender, No soft, No round, No distended, No pulsatile mass, No organomegaly, No guarding, No rebound, No tenderness, No hernia, No mass, No audible bowel sounds, No abnormal bowel sounds, No abdominal bruits, No spleenomegaly, No other Extremities: No normal range of motion, No non-tender, No normal inspection, No pedal edema, No calf tenderness, No normal capillary refill, No pelvis stable , No calf tenderness, No inflammation, No pedal edema, No slow capillary refill , No swelling, No other, No abrasion, No clubbing, No cyanosis, No ecchymosis, No laceration, No no lower extremity edema bilateral, No significant edema, No tenderness, No wound Neurologic/Psychiatric: No homeworker II-XII nml as tested, No no motor/sensory deficits, No alert, No normal mood/affect, No oriented x 3, No abnormal cerebellar tests, No abnormal homeworker II-XII, No abnormal gait, No aphasia, No EOM palsy, No facial droop, No motor weakness, No sensory deficit, No depressed affect, No disoriented x 3, No other, No grossly intact, No power is 5/5 both on sides Results/Procedures: Labs Laboratory Tests 02/08/17 04:33: White Blood Count 5.8, Red Blood Count 4.35, Hemoglobin 12.9, Hematocrit 39, Mean Corpuscular Volume 89, Mean Corpuscular Hemoglobin 30, Mean Corpuscular Hemoglobin Concent 33, Red Cell Distribution Width 14.1, Platelet Count 184, Mean Platelet Volume 12.2H, Neutrophils (%) (Auto) 57, Lymphocytes (%) (Auto) 28 , Monocytes (%) (Auto) 10, Eosinophils (%) (Auto) 5, Basophils (%) (Auto) 0, Neutrophils # (Auto) 3.3, Lymphocytes # (Auto) 1.6, Monocytes # (Auto) 0.6, Eosinophils # (Auto) 0.3, Basophils # (Auto) 0.0, Sodium Level 141, Potassium Level 3.9, Chloride Level 108H, Carbon Dioxide Level 24, Anion Gap 9, Blood Urea Nitrogen 12, Creatinine 0.87, Estimat Glomerular Filtration Rate > 60, BUN/ Creatinine Ratio 14, Glucose Level 122H, Calcium Level 8.7, Phosphorus Level 3.5 , Magnesium Level 1.7L, Total Bilirubin 0.6, Aspartate Amino Transf (AST/SGOT) 18, Alanine Aminotransferase (ALT/SGPT) 14, Alkaline Phosphatase 77, Total Protein 6.2L, Albumin 3.3 A/P: Assessment/Dx: atrial fibrillation with rapid ventricular rate, COPD, Hypertension Plan: status post-transesophageal echocardiogram and cardioversion. Patient is in sinus rhythm. Continue amiodarone 100 mg daily. We'll see Dr. Diaz next week. Continue Eliquis. Active wheezing which according to the patient she always has. We'll do a breathing treatment. no respiratory distress. On room air oxygen saturation is over 96 percent. Mild elevation of blood pressure noted. We will recommend starting her on her outpatient antihypertensive. Thank you for your consultation. Please call me if you have any questions. Juan Ramon Garcia MD, FACP, FACC, FSCAI, FHRS, CCDS Interventional Cardiology Cardiac Electrophysiology Vascular Medicine and Endovascular Interventions Diagnosis/Problems Diagnosis/Problems (1) Atrial fibrillation with RVR Assessment & Plan: Long history of a-fib Converted to sinus rhythm with cardioversion yesterday Currently on amio gtt On Eliquis for anticoagulation Managed per primary (Cards) (2) Hypothyroidism Status: Chronic Assessment & Plan: Continue home Synthroid (3) Essential (primary) hypertension Assessment & Plan: Well controlled (4) COPD (chronic obstructive pulmonary disease) Status: Chronic Assessment & Plan: Continue home inhalers No signs of acute exacerbation Resumed home tessalon (5) Depression Status: Chronic Assessment & Plan: Reports mood has been down since SO Dottie in September Continue Lexapro (6) Prophylactic measure Assessment & Plan: Eliquis for anticoagulation, no further DVT ppx needed Diet Saline Lock OK to DC home from my standpoint Rich GARCIA MD Feb 08, 2017 12:31
--- NOTE | 2017-02-08 12:33 | Discharge Inst-Cardiology ---
Discharge Inst-Cardiac Activity & Diet Discharge Diet: Cardiac Diet Rich PHIPPS MD Feb 08, 2017 12:33
[2017-02-08] MEDS ORDERED: AMIO100T4 PO (12:35)
--- NOTE | 2017-02-08 12:37 | Cardiology Discharge Summary ---
Diagnosis/Chief Complaint Date of Admission Feb 06, 2017 at 12:58 Date of Discharge 02/08/2017 Admission Diagnosis atrial fibrillation with rapid ventricular rate Final/Discharge Diagnosis atrial fibrillation successful cardioversion, COPD, hypertension Chief Complaint/HPI Chief Complaint/HPI palpitations Discharge Summary Procedures transesophageal echocardiogram and cardioversion Discharge Physical Examination stable Expiratory wheezing heard Hospital Course stable Discussion & Recommendations Discussion follow-up with Dr. Diaz within the next one week. Follow up appt.: Dr. Diaz and Dr. Stark Dicharge Diet: Cardiac Diet Activity as Tolerated: Yes Home Medications Reviewed patient Home Medication Reconciliation Form Discharge Home Medications: Reviewed and agree with Discharge Medication list on patient's Discharge Instruction sheet Condition at discharge stable Diagnosis/Problems Diagnosis/Problems (1) Atrial fibrillation with RVR Assessment & Plan: Long history of a-fib Converted to sinus rhythm with cardioversion yesterday Currently on amio gtt On Eliquis for anticoagulation Managed per primary (Cards) (2) Hypothyroidism Status: Chronic Assessment & Plan: Continue home Synthroid (3) Essential (primary) hypertension Assessment & Plan: Well controlled (4) COPD (chronic obstructive pulmonary disease) Status: Chronic Assessment & Plan: Continue home inhalers No signs of acute exacerbation Resumed home tessalon (5) Depression Status: Chronic Assessment & Plan: Reports mood has been down since SO Dottie in September Continue Lexapro (6) Prophylactic measure Assessment & Plan: Eliquis for anticoagulation, no further DVT ppx needed HH Diet Saline Lock OK to DC home from my standpoint Clinical Quality Measures DVT/VTE Risk/Contraindication: Risk Factor Score Per Nursin RFS Level Per Nursing on Admit: 4+=Very High Rich PHIPPS MD Feb 08, 2017 12:37
[2017-02-08] MEDS ORDERED: PRED10TA22 PO (12:43)
== END 2017-02-08 15:20 | disposition home or self-care (01) | DRG 310 ==
LOC: ICU 12:58
PROVIDERS: ADMIT Internal Medicine Cardiovascular Disease; ATTEND Internal Medicine Cardiovascular Disease
PROC: 5A2204Z Restoration of Cardiac Rhythm, Single (ICD-10-PCS; principal; 2017-02-07)
DX: I48.0 Paroxysmal atrial fibrillation (principal); J44.9 Chronic obstructive pulmonary disease, unspecified; I10 Essential (primary) hypertension; I27.2 Other secondary pulmonary hypertension; E03.9 Hypothyroidism, unspecified; F32.9 Major depressive disorder, single episode, unspecified; I25.10 Atherosclerotic heart disease of native coronary artery without angina pectoris; K21.9 Gastro-esophageal reflux disease without esophagitis; E78.5 Hyperlipidemia, unspecified; I65.23 Occlusion and stenosis of bilateral carotid arteries; F17.210 Nicotine dependence, cigarettes, uncomplicated
CPT/HCPCS: 36415; 71010; 71020; 80053; 83735; 83880; 84100; 84439; 84443; 84484; 85025; 85027; 85610; 85730; 93005; 93306; 93320; 93325; 94640; 94760

== ENCOUNTER 2017-05-08 15:42 | Emergency (ER) | payer MEDICARE, BC ==
[~2017-05-08] VITALS: Ht 167.6 cm; Wt 90.7 kg
[~2017-05-08 15:42] MED LIST changes: +ACET-2267 PO; +ALBU0.63 NEB; +AMIO100T4 PO; +APIX5TAB PO; +BENZ-36 PO; +CYAN10006 PO; +ESCI20TA45 PO; +ESOM20TA PO; +FLUT1DIS26 INH; +LEVO125T PO; +NIFE-7 PO; +NITR0.4T39 PO; +NYST60PO TOP; +OLME1TAB44 PO; +OXYC-471 PO; +PRED10TA22 PO; +RT-ALBUINH IH
--- OUTSIDE RECORDS SUMMARY | 2017-05-08 15:59 | XMS REPORT | Continuity of Care Document ---
Author Author [facility] Organization [facility] Address Unknown Phone Unavailable Allergies Active Description Code Type Severity Reaction Onset Reported/Identified Relationship to Patient Clinical Status Yes PCN,Codiene,Iodine,IVP Dye, Nylon, Metal, bandaids PCN,Codiene,Iodine,IVP Dye, Nylon, Metal, bandaids Unknown N/A 02/18/2014 Medications There is no data. Problems Date Dx Coded Attending Type Code Diagnosis Diagnosed By 04/17/1623 REG BLACK DO Ot M75.01 ADHESIVE CAPSULITIS OF RIGHT SHOULDER 01/20/2013 SAMANTA MINER MD Ot 305.1 TOBACCO USE DISORDER 01/20/2013 SAMANTA MINER MD Ot 401.9 HYPERTENSION NOS 01/20/2013 SAMANTA MINER MD Ot 414.01 CORONARY ATHEROSCLEROSIS OF [place] CORON 01/20/2013 SAMANTA MINER MD Ot 424.0 MITRAL VALVE DISORDER 01/20/2013 SAMANTA MINER MD Ot 427.31 ATRIAL FIBRILLATION 01/20/2013 SAMANTA MINER MD Ot 429.3 CARDIOMEGALY 01/20/2013 SAMANTA MINER MD Ot 492.8 EMPHYSEMA NEC 01/20/2013 SAMANTA MNIER MD Ot V15.08 ALLERGY TO RADIOGRAPHIC DYE 01/20/2013 SAMANTA MINER MD Ot V58.61 ANTICOAGULANTS,LT,CURRENT USE 01/20/2013 SAMANTA MINER MD Ot V58.66 LONG-TERM (CURRENT) USE [...] WEST Ot I25.10 ATHSCL HEART DISEASE OF [place] CORONARY 01/01/2016 BINH WEST Ot I48.0 PAROXYSMAL ATRIAL FIBRILLATION 01/01/2016 SAMANTA MINER MD Ot I10 ESSENTIAL (PRIMARY) HYPERTENSION 01/01/2016 SAMANTA MINER MD Ot I25.10 ATHSCL HEART DISEASE OF [place] CORONARY 01/01/2016 SAMANTA MINER MD Ot I48.0 PAROXYSMAL ATRIAL FIBRILLATION 01/01/2016 SAMANTA MINER MD Ot J43.9 EMPHYSEMA, UNSPECIFIED 01/01/2016 SAMANTA MINER MD Ot Z72.0 TOBACCO USE 01/01/2016 SAMANTA MINER MD Ot Z79.01 ENROLLMENT NURSE (CURRENT) USE OF ANTICOAGULANT 01/01/2016 SAMANTA MINER MD Ot Z79.899 OTHER ENROLLMENT NURSE (CURRENT) DRUG THERAPY 01/09/2016 ANTOLIN TALAMANTES MD Ot V76.12 OTH SCREEN MAMMO-MALIGN NEOPLASM OF [place] 01/09/2016 JAMAL HARVEY DO Ot 278.00 OBESITY, NOS 01/09/2016 JAMAL HARVEY DO Ot 300.00 ANXIETY STATE NOS 01/09/2016 WES JAMAL GONZALES Ot 305.1 TOBACCO USE DISORDER 01/09/2016 JAMAL HARVEY DO Ot 427.31 ATRIAL FIBRILLATION 01/09/2016 JAMAL HARVEY DO Ot 496 CHR AIRWAY OBSTRUCT NEC 01/09/2016 JAMAL HARVEY DO Ot 786.05 SHORTNESS OF BREATH 01/09/2016 SAMANTA MINER MD Ot I10 ESSENTIAL (PRIMARY) HYPERTENSION 01/09/2016 SAMANTA MINER MD Ot I25.10 ATHSCL HEART DISEASE OF [place] CORONARY 01/09/2016 SAMANTA MINRE MD Ot I48.0 PAROXYSMAL ATRIAL FIBRILLATION 01/09/2016 SAMANTA MINER MD Ot J43.9 EMPHYSEMA, UNSPECIFIED 01/09/2016 SAMANTA MINER MD Ot Z72.0 TOBACCO USE 01/09/2016 SAMANTA MINER MD Ot Z79.01 ENROLLMENT NURSE (CURRENT) USE OF ANTICOAGULANT 01/09/2016 SAMANTA MINER MD Ot Z79.899 OTHER SNF (CURRENT) DRUG THERAPY 01/09/2016 BINH WEST Ot E78.2 MIXED HYPERLIPIDEMIA 01/09/2016 BINH WEST Ot I10 ESSENTIAL (PRIMARY) HYPERTENSION 01/09/2016 BIN[facility] WEST Ot I25.10 ATHSCL HEART DISEASE OF [place] CORONARY 01/09/2016 BINH WEST Ot I48.0 PAROXYSMAL ATRIAL FIBRILLATION 01/15/2016 BINH WEST Ot E78.2 MIXED HYPERLIPIDEMIA 01/15/2016 BINH WEST Ot I10 ESSENTIAL (PRIMARY) HYPERTENSION 01/15/2016 BINH WEST Ot I25.10 ATHSCL HEART DISEASE OF [place] CORONARY 01/15/2016 BINH WEST Ot I48.0 PAROXYSMAL ATRIAL FIBRILLATION 01/19/2016 SAMANTA MINER MD Ot I10 ESSENTIAL (PRIMARY) HYPERTENSION 01/19/2016 SAMANTA MINER MD Ot I25.10 ATHSCL HEART DISEASE OF [place] CORONARY 01/19/2016 SAMANTA MINER MD Ot I48.0 PAROXYSMAL ATRIAL FIBRILLATION 01/19/2016 SAMANTA MINER MD Ot J43.9 EMPHYSEMA, UNSPECIFIED 01/19/2016 SAMANTA MINER MD Ot Z72.0 TOBACCO USE 01/19/2016 SAMANTA MINER MD Ot Z79.01 SNF (CURRENT) USE OF ANTICOAGULANT 01/19/2016 SAMANTA MINER MD Ot Z79.899 OTHER ENROLLMENT NURSE (CURRENT) DRUG THERAPY 01/19/2016 BINH WEST Ot E78.2 MIXED HYPERLIPIDEMIA 01/19/2016 BINH WEST Ot I10 ESSENTIAL (PRIMARY) HYPERTENSION 01/19/2016 BINH WEST Ot I25.10 ATHSCL HEART DISEASE OF [place] CORONARY 01/19/2016 BINH WEST Ot I48.0 PAROXYSMAL [...] MD Ot I25.10 ATHSCL HEART DISEASE OF [place] CORONARY 08/01/2016 SAMANTA MINER MD Ot I48.0 PAROXYSMAL ATRIAL FIBRILLATION 08/01/2016 SAMANTA MINER MD Ot J43.9 EMPHYSEMA, UNSPECIFIED 08/01/2016 SAMANTA MINER MD Ot Z72.0 TOBACCO USE 08/01/2016 SAMANTA MINER MD Ot Z79.01 ENROLLMENT NURSE (CURRENT) USE OF ANTICOAGULANT 08/01/2016 SAMANTA MINER MD Ot Z79.899 OTHER ENROLLMENT NURSE (CURRENT) DRUG THERAPY 08/01/2016 BINH WEST Ot E78.2 MIXED HYPERLIPIDEMIA 08/01/2016 BINH WEST Ot I10 ESSENTIAL (PRIMARY) HYPERTENSION 08/01/2016 BIN[facility] WEST Ot I25.10 ATHSCL HEART DISEASE OF [place] CORONARY 08/01/2016 BINH WEST Ot I48.0 PAROXYSMAL [...] MD Ot I25.10 ATHSCL HEART DISEASE OF [place] CORONARY 08/08/2016 SAMANTA MINER MD Ot I48.0 PAROXYSMAL ATRIAL FIBRILLATION 08/08/2016 SAMANTA MINER MD, Ot J43.9 EMPHYSEMA, UNSPECIFIED 08/08/2016 SAMANTA MINER MD Ot Z72.0 TOBACCO USE 08/08/2016 SAMANTA MINER MD Ot Z79.01 ENROLLMENT NURSE (CURRENT) USE OF ANTICOAGULANT 08/08/2016 SAMANTA MINER MD Ot Z79.899 OTHER ENROLLMENT NURSE (CURRENT) DRUG THERAPY 08/08/2016 BINH WE[facility] Ot E78.2 MIXED HYPERLIPIDEMIA 08/08/2016 BINH WEST Ot I10 ESSENTIAL (PRIMARY) HYPERTENSION 08/08/2016 BIN[facility] WEST Ot I25.10 ATHSCL HEART DISEASE OF [place] CORONARY 08/08/2016 BINH WEST Ot I48.0 PAROXYSMAL ATRIAL FIBRILLATION 08/29/2016 REG BLACK DO Ot M75.01 ADHESIVE CAPSULITIS OF RIGHT SHOULDER 02/08/2017 SAMANTA MINER MD Ot E03.9 HYPOTHYROIDISM, UNSPECIFIED 02/08/2017 SAMANTA MINER MD Ot E78.5 HYPERLIPIDEMIA, UNSPECIFIED 02/08/2017 SAMANTA MINER MD Ot F17.210 NICOTINE DEPENDENCE, CIGARETTES, UNCOMPL 02/08/2017 SAMANTA MINER MD Ot F32.9 MAJOR DEPRESSIVE DISORDER, SINGLE EPISOD 02/08/2017 SAMANTA MINER MD Ot I10 ESSENTIAL (PRIMARY) HYPERTENSION 02/08/2017 SAMANTA MINER MD Ot I25.10 ATHSCL HEART DISEASE OF [place] CORONARY 02/08/2017 SAMANTA MINER MD Ot I27.2 OTHER SECONDARY PULMONARY HYPERTENSION 02/08/2017 SAMANTA MINER MD Ot I48.0 PAROXYSMAL ATRIAL FIBRILLATION 02/08/2017 SAMANTA MINER MD Ot I65.23 OCCLUSION AND STENOSIS OF BILATERAL [place] 02/08/2017 SAMANTA MINER MD Ot J44.9 CHRONIC OBSTRUCTIVE PULMONARY DISEASE, U 02/08/2017 KRISTOFER ANN, SAMANTA Molina Ot K21.9 GASTRO-ESOPHAGEAL REFLUX DISEASE WITHOUT Procedures Code Description Performed By Performed On [id number] AMISH OF CARDIAC RHYTHM, SINGLE 02/07/2017 Results Test Result Range Automated blood complete blood count (hemogram) panel - 02/06/17 14:00 Blood leukocytes automated count (number/volume) 9.0 10*3/uL 4.3-11.0 Blood erythrocytes automated count (number/volume) 4.97 10*6/uL 4.35-5.85 Venous blood hemoglobin measurement (mass/volume) 14.6 g/dL 11.5-16.0 Blood hematocrit (volume fraction) 43 % 35-52 Automated erythrocyte mean corpuscular volume 87 [foz_us] 80-99 Automated erythrocyte mean corpuscular hemoglobin (mass per erythrocyte) 29 pg 25-34 Automated erythrocyte mean corpuscular hemoglobin concentration measurement ( mass/volume) 34 g/dL 32-36 Automated erythrocyte distribution width ratio 14.3 % 10.0-14.5 Automated blood platelet count (count/volume) 226 10*3/uL 130-400 Automated blood platelet mean volume measurement 12.5 [foz_us] 7.4-10.4 PT panel in platelet poor plasma by coagulation assay - 02/06/17 14:00 Prothrombin time (PT) in platelet poor plasma by coagulation assay 14.9 s 12.2-14.7 INR in platelet poor plasma or blood by coagulation assay 1.2 0.8-1.4 Activated partial thromboplastin time (aPTT) in platelet poor plasma bycoagulation assay - 02/06/17 14:00 Activated partial thromboplastin time (aPTT) in platelet poor plasma bycoagulation assay 32 s 24-35 Comprehensive metabolic panel - 02/06/17 14:00 Serum or plasma sodium measurement (moles/volume) 141 mmol/L 135-145 Serum or plasma potassium measurement (moles/volume) 3.4 mmol/L 3.6-5.0 Serum or plasma chloride measurement (moles/volume) 105 mmol/L 98-107 Carbon dioxide 25 mmol/L 21-32 Serum or plasma anion gap determination (moles/volume) 11 mmol/L 5-14 Serum or plasma urea nitrogen measurement (mass/volume) 13 mg/dL 7-18 Serum or plasma creatinine measurement (mass/volume) 1.05 mg/dL 0.60-1.30 Serum or plasma urea nitrogen/creatinine mass ratio 12 NRG Serum or plasma creatinine measurement with calculation of estimated glomerular filtration rate 51 NRG Serum or plasma glucose measurement (mass/volume) 132 mg/dL 70-105 Serum or plasma calcium measurement (mass/volume) 9.2 mg/dL 8.5-10.1 Serum or plasma total bilirubin measurement (mass/volume) 0.6 mg/dL 0.1-1.0 Serum or plasma alkaline phosphatase measurement (enzymatic activity/volume) 73 U/L 40-136 Serum or plasma aspartate aminotransferase measurement (enzymatic activity/ volume) 17 U/L 5-34 Serum or plasma alanine aminotransferase measurement (enzymatic activity/volume ) 15 U/L 0-55 Serum or plasma protein measurement (mass/volume) 6.9 g/dL 6.4-8.2 Serum or plasma albumin measurement (mass/volume) 3.7 g/dL 3.2-4.5 Magnesium - 02/06/17 14:00 Magnesium 1.4 mg/dL 1.8-2.4 Serum or plasma lithium measurement (moles/volume) - 02/06/17 14:00 BNP level 226.0 pg/mL <100.0 Serum or plasma troponin i.cardiac measurement (mass/volume) - 02/06/17 14:00 Serum or plasma troponin i.cardiac measurement (mass/volume) < ng/ mL <0.30 THYROID STIMULATING HORMONE - 02/06/17 14:00 THYROID STIMULATING HORMONE 0.10 u[iU]/mL 0.35-4.94 Serum or plasma thyroxine (T4) free measurement (mass/volume) - 02/07/17 08:26 Serum or plasma thyroxine (T4) free measurement (mass/volume) 1.13 ng/dL 0.70-1.48 Complete blood count (CBC) with automated white blood cell (WBC) differential - 02/08/17 04:33 Blood leukocytes automated count (number/volume) 5.8 10*3/uL 4.3-11.0 Blood erythrocytes automated count (number/volume) 4.35 10*6/uL 4.35-5.85 Venous blood hemoglobin measurement (mass/volume) 12.9 g/dL 11.5-16.0 Blood hematocrit (volume fraction) 39 % 35-52 Automated erythrocyte mean corpuscular volume 89 [foz_us] 80-99 Automated erythrocyte mean corpuscular hemoglobin (mass per erythrocyte) 30 pg 25-34 Automated erythrocyte mean corpuscular hemoglobin concentration measurement ( mass/volume) 33 g/dL 32-36 Automated erythrocyte distribution width ratio 14.1 % 10.0-14.5 Automated blood platelet count (count/volume) 184 10*3/uL 130-400 Automated blood platelet mean volume measurement 12.2 [foz_us] 7.4-10.4 Automated blood neutrophils/100 leukocytes 57 % 42-75 Automated blood lymphocytes/100 leukocytes 28 % 12-44 Blood monocytes/100 leukocytes 10 % 0-12 Automated blood eosinophils/100 leukocytes 5 % 0-10 Automated blood basophils/100 leukocytes 0 % 0-10 Blood neutrophils automated count (number/volume) 3.3 10*3 1.8-7.8 Blood lymphocytes automated count (number/volume) 1.6 10*3 1.0-4.0 Blood monocytes automated count (number/volume) 0.6 10*3 0.0-1.0 Automated eosinophil count 0.3 10*3/uL 0.0-0.3 Automated blood basophil count (count/volume) 0.0 10*3/uL 0.0-0.1 Comprehensive metabolic panel - 02/08/17 04:33 Serum or plasma sodium measurement (moles/volume) 141 mmol/L 135-145 Serum or plasma potassium measurement (moles/volume) 3.9 mmol/L 3.6-5.0 Serum or plasma chloride measurement (moles/volume) 108 mmol/L 98-107 Carbon dioxide 24 mmol/L 21-32 Serum or plasma anion gap determination (moles/volume) 9 mmol/L 5-14 Serum or plasma urea nitrogen measurement (mass/volume) 12 mg/dL 7-18 Serum or plasma creatinine measurement (mass/volume) 0.87 mg/dL 0.60-1.30 Serum or plasma urea nitrogen/creatinine mass ratio 14 NRG Serum or plasma creatinine measurement with calculation of estimated glomerular filtration rate > NRG Serum or plasma glucose measurement (mass/volume) 122 mg/dL 70-105 Serum or plasma calcium measurement (mass/volume) 8.7 mg/dL 8.5-10.1 Serum or plasma total bilirubin measurement (mass/volume) 0.6 mg/dL 0.1-1.0 Serum or plasma alkaline phosphatase measurement (enzymatic activity/volume) 77 U/L 40-136 Serum or plasma aspartate aminotransferase measurement (enzymatic activity/ volume) 18 U/L 5-34 Serum or plasma alanine aminotransferase measurement (enzymatic activity/volume ) 14 U/L 0-55 Serum or plasma protein measurement (mass/volume) 6.2 g/dL 6.4-8.2 Serum or plasma albumin measurement (mass/volume) 3.3 g/dL 3.2-4.5 Serum or plasma phosphate measurement (mass/volume) - 02/08/17 04:33 Serum or plasma phosphate measurement (mass/volume) 3.5 mg/dL 2.3-4.7 Magnesium - 02/08/17 04:33 Magnesium 1.7 mg/dL 1.8-2.4 Encounters ACCT No. Visit Date/Time Discharge Status Pt. Type Provider Facility Loc./Unit Complaint [id number] 02/06/2017 12:58:00 02/08/2017 15:20:00 DIS Inpatient SAMANTA MINER MD [facility] ICU AFIB WITH RVR [id number] 08/08/2016 13:37:00 08/29/2016 16:24:00 DIS Outpatient REG BLACK DO [facility] REHAB RIGHT SHOULDER ADHESIVE CAPSULITIS [id number] 12/29/2015 11:58:00 12/29/2015 23:59:59 CLS Outpatient BINH WEST [facility] CARD AFIB, CAD, HTN,HLP [id number] 12/27/2015 09:11:00 12/27/2015 23:59:59 CLS Outpatient SAMANTA MINER MD [facility] CATH AFIB,PALPITATIONS [id number] 04/28/2015 12:41:00 04/28/2015 14:40:00 DIS Emergency KASANDRA RIVERS APRN [facility] ER COUGH [id number] 02/18/2014 00:11:00 02/18/2014 11:10:00 DIS Inpatient ALBIN ANN, ANTOLIN Pretty [facility] CSD HYPOXIA FLUID OVERLOAD LIGHTHEADED VERTIGO [id number] 05/27/2013 15:14:00 05/27/2013 23:59:59 CLS Outpatient GEORGES HARVEY DOSON Rich [facility] RT COPD, EMPHYSEMA [id number] 05/05/2013 15:01:00 05/05/2013 23:59:59 CLS Outpatient ANTOLIN TALAMANTES MD [facility] RAD SCREENING [id number] 01/20/2013 12:57:00 01/20/2013 16:20:00 DIS Outpatient SAMANTA MINER MD [facility] CATH A-FIB [id number] 01/11/2013 07:46:00 01/11/2013 23:59:59 CLS Outpatient SAMANTA MINER MD [facility] RAD CP,DYSPNEA [id number] 12/31/2012 12:47:00 12/31/2012 23:59:59 CLS Outpatient SAMANTA MINER MD [facility] CARD CP,DYSPNEA [id number] 12/11/2012 10:17:00 12/11/2012 23:59:59 CLS Outpatient ANTOLIN TALAMANTES MD [facility] RAD ELEVATED COUGH, TOBACCOISM
[2017-05-08] MEDS ORDERED: PROMETHAZINE/DM SYRUP (PHENERGDAN DM) 5 ML UDC PO ONE (16:00)
[2017-05-08] MEDS ORDERED: methylPREDNISolone 125 MG (Solu-MEDROL) VIAL IVP ONE (16:00)
[2017-05-08] MEDS ORDERED: BENZONATATE 100 MG (TESSALON) CAPSULE PO SCH (16:00)
[2017-05-08] MEDS ORDERED: RT-ALBUTEROL/IPRATROPIUM 3 ML (DUONEB) VIAL INH ONE (16:00)
[2017-05-08] MEDS ORDERED: DEXAMETHASONE 4 MG/ML SDV (DECADRON) IH ONE (16:00)
[2017-05-08 16:28] LABS: BASOPHILS % (AUTO) 0 % (0-10); EOSINOPHILS % (AUTO) 0 % (0-10); LYMPHOCYTES # (AUTO) 0.7 X 10^3 (1.0-4.0); LYMPHOCYTES % (AUTO) 11 % (12-44); MEAN CORPUSCULAR HEMOGLOBIN 30 PG (25-34); MEAN CORPUSCULAR HGB CONC 34 G/DL (32-36); MEAN CORPUSCULAR VOLUME 89 FL (80-99); MEAN PLATELET VOLUME 11.9 FL (7.4-10.4); MONOCYTES # (AUTO) 0.5 X 10^3 (0.0-1.0); MONOCYTES % (AUTO) 8 % (0-12); NEUTROPHILS # (AUTO) 5.4 X 10^3 (1.8-7.8); NEUTROPHILS % (AUTO) 81 % (42-75); PLATELET COUNT 202 10^3/uL (130-400); RED BLOOD COUNT 5.14 10^6/uL (4.35-5.85); WHITE BLOOD COUNT 6.7 10^3/uL (4.3-11.0)
[2017-05-08 16:42] LABS: INR 1.1 (0.8-1.4); PROTHROMBIN TIME PATIENT 14.3 SEC (12.2-14.7)
[2017-05-08 16:51] LABS: ALANINE AMINOTRANSFERASE 22 U/L (0-55); ALBUMIN 3.9 GM/DL (3.2-4.5); ANION GAP 13 MMOL/L (5-14); ASPARTATE AMINO TRANSFERASE 35 U/L (5-34); BILIRUBIN,TOTAL 0.9 MG/DL (0.1-1.0); BLOOD UREA NITROGEN 13 MG/DL (7-18); BUN/CREATININE RATIO 9; CALCIUM 9.3 MG/DL (8.5-10.1); CARBON DIOXIDE 28 MMOL/L (21-32); CHLORIDE 98 MMOL/L (98-107); CREATININE SERUM 1.51 MG/DL (0.60-1.30); GFR ESTIMATED 34; GLUCOSE 143 MG/DL (70-105); MAGNESIUM 1.6 MG/DL (1.8-2.4); POTASSIUM 3.5 MMOL/L (3.6-5.0); SODIUM 139 MMOL/L (135-145); TOTAL PROTEIN 7.6 GM/DL (6.4-8.2)
[2017-05-08 16:59] LABS: TROPONIN I < 0.30 NG/ML (<0.30)
--- NOTE | 2017-05-08 17:05 | Diagnostic Imaging Report ---
CLINICAL INDICATION: Patient has cough and green phlegm x6 weeks. EXAM: Portable chest x-ray upright view. COMPARISONS: Chest x-ray dated 02/08/2017. FINDINGS: There is a subtle slight increased density in both lung bases, which may represent atelectasis, but superimposed infiltrate cannot be completely excluded. There are continued diffuse reticulonodular changes throughout both lungs, which may be related to chronic interstitial lung changes. There are also slight low lung volumes seen. Pulmonary vasculature and chronic silhouette are stable and within normal limits. There is no gross pleural effusion or pneumothorax. Bones show no significant interval abnormality. IMPRESSION: 1: There is slight increased density in both lung bases, which may represent atelectasis, but infiltrate cannot be completely excluded. Chest x-ray, PA and lateral views, may help better evaluate. 2: There are superimposed chronic interstitial lung disease changes again seen. Dictated by: Dictated on workstation # [id number]
--- NOTE | 2017-05-08 18:01 | Diagnostic Imaging Report ---
PROCEDURE: CT chest without contrast. TECHNIQUE: Multiple contiguous axial images were obtained through the chest without the use of intravenous contrast. INDICATION: Shortness of air with cough. FINDINGS: There are five-lobed interstitial opacities and air trapping on a chronic basis. No alveolar consolidation or acute infiltrate superimposed. No pleural or pericardial effusion. No pneumothorax. No mass or evidence for adenopathy. Upper abdomen reveals an upper pole stone nonobstructing 4 mm, left kidney with previous cholecystectomy and no acute appearing upper abdominal abnormality. IMPRESSION: Chronic five-lobed interstitial lung disease. No thoracic effusion, pneumothorax, mass or acute infiltrate. Fatty liver with nonobstructing nephrolithiasis and nonaneurysmal atherosclerosis. Dictated by: Dictated on workstation # [id number]
[2017-05-08] MEDS ORDERED: cefTRIAXone INJECTION 1,000 MG in NS (IVPB) 50 ML IV ONE (18:30)
--- NOTE | 2017-05-08 18:30 | ED Cough/URI ---
General Chief Complaint: Respiratory Problems Stated Complaint: COUGH,WEAKNESS Nursing Triage Note: PT REPORTS SOA/COUGH X 6 WEEKS. PT STATES 10 DAYS AGO SHE SAW HER DR AND WAS PLACED ON A STERIOD. PT REPORTS WHEN HER STERIODS WERE COMPLETE SHE GOT WORSE AGAIN. Source: patient, EMS History of Present Illness Time seen by provider: 15:47 Initial Comments PT ARRIVES VIA EMS FROM HOME C/O NON-PRODUCTIVE COUGH AND GENERALIZED WEAKNESS FOR 6 WEEKS PT WAS SEEN BY DR. TALAMANTES 10 DAYS AGO FOR THIS PROBLEM AND PRESCRIBED PREDNISONE AND SYMPTOMS IMPROVED, THEN BEGAN TO RETURN AFTER SHE FINISHED THE MEDICATION HAS HAD SUBJECTIVE FEVER--HAS NOT TAKEN ANYTHING FOR FEVER PT HAS COPD AND CONTINUES TO SMOKE 2 PPD HAS CHRONIC SHORTNESS OF BREATH, BUT HAS BEEN WORSE THE LAST 6 WEEKS WELL PT HAS HOME O2 BUT HAS NOT BEEN USING IT PT ALSO HAS HOME NEBULIZER AND INHALERS, BUT HAS NOT BEEN USING THEM NO SWELLING IN LEGS/ FEET OR PAIN IN CALVES NO CHEST PAIN NO NAUSEA/VOMITING PCP: DR. TALAMANTES Allergies and Home Medications Allergies Uncoded Allergies: PCN,Codiene,Iodine,IVP Dye, Nylon, Metal, bandaids (Allergy, Unknown, ) Home Medications Acetaminophen 500 Mg Tablet, 1,000 MG PO Q6H PRN for PAIN-MILD, (Reported) TAKES 2 (500MG) TABLET Albuterol Sulfate 1 Puff Puff, 1 PUFF IH Q4H PRN for SHORTNESS OF BREATH, ( Reported) 1 PUFF = 90 MCG Albuterol Sulfate 0.63 Mg/3 Ml Vial.neb, 0.63 MG NEB Q4H PRN for SHORTNESS OF BREATH, (Reported) Amiodarone HCl 100 Mg Tablet, 100 MG PO DAILY for 30 Days, Ref 0 Prescribed by: Rich PHIPPS on 02/08/17 1235 Apixaban 5 Mg Tablet, 5 MG PO BID, (Reported) Azithromycin 500 Mg Tablet, 500 MG PO DAILY, #5 FOR INFECTION Prescribed by: DAVID HI on 05/08/17 1833 Benzonatate 100 Mg Capsule, 100 MG PO TID, #45 Prescribed by: HALIMA DE PAZ on 02/08/17 0819 Benzonatate 100 Mg Capsule, 1-2 TAB PO TID, #30 Prescribed by: DAVID HI on 05/08/17 1833 Cefdinir 300 Mg Capsule, 300 MG PO BID, #20 FOR INFECTION Prescribed by: DAVID HI on 05/08/171832 Cyanocobalamin (Vitamin B-12) 1,000 Mcg Tablet, 1,000 MCG PO WEEK PRN for ENERGY , (Reported) D-Methorphan Hb/Prometh HCl 118 Ml Syrup, 1-2 TSP PO Q4H, #120 Prescribed by: DAVID HI on 05/08/171832 Escitalopram Oxalate 20 Mg Tablet, 20 MG PO DAILY, (Reported) Esomeprazole Magnesium 20 Mg Tablet.dr, 20-40 MG PO DAILY, (Reported) Fluticasone/Salmeterol 1 Each Blst.w.dev, 1 PUFF INH BID PRN for SHORTNESS OF BREATH, (Reported) Levothyroxine Sodium 125 Mcg Tablet, 125 MCG PO DAILY, (Reported) Nifedipine 30 Mg Tablet.er, 30 MG PO DAILY PRN for BP ABOVE 240/130, (Reported) Nitroglycerin 0.4 Mg Tab.subl, 0.4 MG PO UD PRN for CHEST PAIN, (Reported) Nystatin 60 Gm Powder, TOP BID PRN for GAULDING, (Reported) Olmesartan/Hydrochlorothiazide 1 Each Tablet, 1 TAB PO DAILY, (Reported) Oxycodone HCl/Acetaminophen 1 Each Tablet, 0.5-1 TAB PO Q6H PRN for PAIN- MODERATE, (Reported) Prednisone 10 Mg Tab.ds.pk, 10 MG PO DAILY, #21 Take 6 tabs(60mg)daily,decrease by 1 tab(10MG)daily. Prescribed by: HALIMA DE PAZ on 02/08/17 1243 Prednisone 5 Mg Tablet, 5 MG PO UD, #78 12 PILLS DAY 1, THEN DECREASE BY 1 PILL A DAY UNTIL GONE Prescribed by: DAVID HI on 05/08/171832 Constitutional: see HPI, fever, malaise, weakness EENTM: no symptoms reported Respiratory: see HPI, cough, dyspnea on exertion, No phlegm, short of breath, No wheezing Cardiovascular: no symptoms reported, No chest pain, No edema, No palpitations , No syncope Gastrointestinal: no symptoms reported, No nausea, No vomiting Genitourinary: no symptoms reported Musculoskeletal: no symptoms reported Skin: no symptoms reported Psychiatric/Neurological: No Symptoms Reported Hematologic/Lymphatic: No Symptoms Reported Immunological/Allergic: no symptoms reported Past Cyxqzzb-Frdyng-Yxszzk Hx Patient Social History Alcohol Use: Denies Use Recreational Drug Use: No Smoking Status: Current Everyday Smoker (2 PPD) Type Used: Cigarettes Recent Foreign Travel: No Contact w/Someone Who Travel: No Recent Infectious Disease Expo: No Recent Hopitalizations: No Physical Abuse: No Sexual Abuse: No Mistreated: No Immunizations Up To Date Tetanus Booster (TDap): Unknown PED Vaccines UTD: No Date of Pneumonia Vaccine: Jan 20, 2011 Date of Influenza Vaccine: Feb 20, 2012 Seasonal Allergies Seasonal Allergies: Yes Surgeries History of Surgeries: Yes (WEDGE RESECTION, BREAST REDUCTION) Surgeries: Abdominal, Appendectomy, Breast, Gallbladder, Hysterectomy, Orthopedic, Tonsillectomy Respiratory History of Respiratory Disorde: Yes Respiratory Disorders: Chronic Bronchitis, Sleep Apnea, COPD, Emphysema Currently Using CPAP: No Cardiovascular History of Cardiac Disorders: Yes Cardiac Disorders: Atrial Fibrillation, Coronary Artery Disease, Hypertension Neurological History of Neurological Disord: Yes (pt reports having "small stroke" in - NO RESIDUAL) Neurological Disorders: Stroke Reproductive System Hx Reproductive Disorders: No Genitourinary History of Genitourinary Disor: Yes (STRESS INCONTINENCE) Gastrointestinal History of Gastrointestinal Di: Yes Gastrointestinal Disorders: Gastroesophageal Reflux Musculoskeletal History of Musculoskeletal Dis: No Endocrine History of Endocrine Disorders: Yes (HYPOGLYCEMIA, OBESITY) Endocrine Disorders: Hypothyroidsim HEENT History of HEENT Disorders: No Cancer History of Cancer: No Psychosocial History of Psychiatric Problem: Yes Behavioral Health Disorders: Anxiety, Depression Suicide Risk Score: 0 Integumentary History of Skin or Integumenta: No Blood Transfusions History of Blood Disorders: No Adverse Reaction to a Blood Tr: No Family Medical History Family Medial History: Cardiovascular disease 19 FATHER 19 MOTHER Diabetes mellitus 19 MOTHER G8 BROTHER G8 SISTER Drug abuse G8 BROTHER G8 SISTER FH: lupus erythematosus Hypercholesterolemia 19 FATHER 19 MOTHER Hypertension 19 FATHER 19 MOTHER Myocardial infarction 19 FATHER 19 MOTHER Physical Exam Vital Signs Vital Sign - Last 12Hours 05/08/17 05/08/17 16:20 16:37 Temp 97.9 Pulse 69 Resp 20 B/P (MAP) 116/67 (83) Pulse Ox 95 O2 Delivery Nasal Cannula O2 Flow Rate 3.00 Capillary Refill : Less Than 3 Seconds General Appearance: no apparent distress, obese, other (FREQUENT NON- PRODUCTIVE COUGH; REEKS OF CIGARETTES) HEENT: PERRL/EOMI Neck: normal inspection Respiratory: no respiratory distress, no accessory muscle use, decreased breath sounds (IN BASES), rales (VERY FAINT RALES IN BASES BILATERALLY), No rhonchi, wheezing (FAINT EXPIRATORY WHEEZING BILATERALLY) Cardiovascular: regular rate, rhythm, no edema, no JVD, no murmur Gastrointestinal: normal bowel sounds, non tender, soft Extremities: normal inspection, no pedal edema, no calf tenderness, normal capillary refill 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, no motor/sensory deficits, alert, oriented x 3 Skin: normal color, warm/dry Focused Exam Evaluation Lactate Level Laboratory Tests 05/08/17 16:05: Lactic Acid Level 3.42*H 05/08/17 18:09: Lactic Acid Level 1.86 Lactic Acid Level Laboratory Tests Test 05/08/17 16:05 05/08/17 18:09 Lactic Acid Level 3.42 MMOL/L (0.50-2.00) *H 1.86 MMOL/L (0.50-2.00) Progress/Results/Core Measures Suspected Sepsis Recent Fever Within 48 Hours: No Infection Criteria Present: Suspected New Infection New/Unexplained Altered Menta: No Sepsis Screen: No Definite Risk Sepsis Diagnosis: SIRS Temperature:97.9 Pulse: 69 Respiratory Rate: 20 Laboratory Tests 05/08/17 16:05: White Blood Count 6.7 Blood Pressure 116 /67 Mean: 83 Laboratory Tests 05/08/17 16:05: Lactic Acid Level 3.42*H 05/08/17 18:09: Lactic Acid Level 1.86 Laboratory Tests 05/08/17 16:05: Creatinine 1.51H, INR Comment 1.1, Platelet Count 202, Total Bilirubin 0.9 Results/Orders Lab Results Laboratory Tests Test 05/08/17 16:05 05/08/17 18:09 Range/Units White Blood Count 6.7 4.3-11.0 10^3/uL Red Blood Count 5.14 4.35-5.85 10^6/uL Hemoglobin 15.4 11.5-16.0 G/DL Hematocrit 46 35-52 % Mean Corpuscular Volume 89 80-99 FL Mean Corpuscular Hemoglobin 30 25-34 PG Mean Corpuscular Hemoglobin Concent 34 32-36 G/DL Red Cell Distribution Width 15.0 H 10.0-14.5 % Platelet Count 202 130-400 10^3/uL Mean Platelet Volume 11.9 H 7.4-10.4 FL Neutrophils (%) (Auto) 81 H 42-75 % Lymphocytes (%) (Auto) 11 L 12-44 % Monocytes (%) (Auto) 8 0-12 % Eosinophils (%) (Auto) 0 0-10 % Basophils (%) (Auto) 0 0-10 % Neutrophils # (Auto) 5.4 1.8-7.8 X 10^3 Lymphocytes # (Auto) 0.7 L 1.0-4.0 X 10^3 Monocytes # (Auto) 0.5 0.0-1.0 X 10^3 Eosinophils # (Auto) 0.0 0.0-0.3 10^3/uL Basophils # (Auto) 0.0 0.0-0.1 10^3/uL Prothrombin Time 14.3 12.2-14.7 SEC INR Comment 1.1 0.8-1.4 Activated Partial Thromboplast Time 35 24-35 SEC Sodium Level 139 135-145 MMOL/L Potassium Level 3.5 L 3.6-5.0 MMOL/L Chloride Level 98 98-107 MMOL/L Carbon Dioxide Level 28 21-32 MMOL/L Anion Gap 13 5-14 MMOL/L Blood Urea Nitrogen 13 7-18 MG/DL Creatinine 1.51 H 0.60-1.30 MG/DL Estimat Glomerular Filtration Rate 34 BUN/Creatinine Ratio 9 Glucose Level 143 H 70-105 MG/DL Lactic Acid Level 3.42 *H 1.86 0.50-2.00 MMOL/L Calcium Level 9.3 8.5-10.1 MG/DL Magnesium Level 1.6 L 1.8-2.4 MG/DL Total Bilirubin 0.9 0.1-1.0 MG/DL Aspartate Amino Transf (AST/SGOT) 35 H 5-34 U/L Alanine Aminotransferase (ALT/SGPT) 22 0-55 U/L Alkaline Phosphatase 69 40-136 U/L Troponin I < 0.30 <0.30 NG/ML B-Type Natriuretic Peptide 133.1 H <100.0 PG/ML Total Protein 7.6 6.4-8.2 GM/DL Albumin 3.9 3.2-4.5 GM/DL Micro Results Microbiology 05/08/17 Influenza Types A,B Antigen (LISA) - Final, Complete My Orders Orders - DAVID HI DO Saline Lock/Iv-Start (05/08/17 15:55) Ekg Tracing (05/08/17 15:55) O2 (05/08/17 15:55) Monitor-Rhythm Ecg Trace Only (05/08/17 15:55) BNP (05/08/17 15:55) Cbc With Automated Diff (05/08/17 15:55) Comprehensive Metabolic Panel (05/08/17 15:55) Lactic Acid Analyzer (05/08/17 15:55) Magnesium (05/08/17 15:55) Protime With Inr (05/08/17 15:55) Partial Thromboplastin Time (05/08/17 15:55) Troponin I (05/08/17 15:55) Blood Culture (05/08/17 15:55) Influenza A And B Antigens (05/08/17 15:55) Chest 1 View, Ap/Pa Only (05/08/17 15:55) Albuterol/Ipra Inhalation Soln (Duoneb I (05/08/17 16:00) Dexamethasone Injection (Decadron Inject (05/08/17 16:00) Rt Request For Service (05/08/17 15:55) Svn Sm Volume Nebulizer Rt-Rfs (05/08/17 15:55) Benzonatate Capsule (Tessalon Perles) (05/08/17 16:00) Promethazine/Dm Syrup (Phenergan/Dm Syru (05/08/17 16:00) Methylprednisolone Sod Succ (Solu-Medrol (05/08/17 16:00) Ct Chest Wo (05/08/17 17:09) Ceftriaxone Injection (Rocephin Injectio (05/08/17 18:30) Azithromycin Tablet (Zithromax Tablet) (05/09/17 09:00) Medications Given in ED Current Medications Medications Dose Ordered Sig/Lorena Route Start Time Stop Time Status Last Admin Dose Admin Albuterol/ Ipratropium 3 ml ONCE ONCE INH 05/08/17 16:00 05/08/17 16:01 DC 05/08/17 16:19 3 ML Ceftriaxone Sodium 1000 mg/ Sodium Chloride 50 ml @ 100 mls/hr ONCE ONCE IV 05/08/17 18:30 05/08/17 18:59 DC 05/08/17 18:43 100 MLS/HR Dexamethasone Sodium Phosphate 20 mg ONCE ONCE IH 05/08/17 16:00 05/08/17 16:01 DC 05/08/17 16:20 20 MG Methylprednisolone Sodium Succinate 125 mg ONCE ONCE IVP 05/08/17 16:00 05/08/17 16:01 DC 05/08/17 16:14 125 MG Promethazine HCl/ Dextromethorphan 10 ml ONCE ONCE PO 05/08/17 16:00 05/08/17 16:01 DC 05/08/17 16:14 10 ML Vital Signs/I&O Vital Sign - Last 12Hours 05/08/17 05/08/17 16:20 16:37 Temp 97.9 Pulse 69 Resp 20 B/P (MAP) 116/67 (83) Pulse Ox 95 94 O2 Delivery Nasal Cannula O2 Flow Rate 3.00 Capillary Refill : Less Than 3 Seconds Blood Pressure Mean: 83 Progress Note : Progress Note O2 SATS 87-88%ON ROOM AIR ON ARRIVAL--UP TO 96-97% ON 2L/NC COUGHING STOPPED WHEN PT TURNED ON HER SIDE--COUGH ALSO IMPROVED WITH MEDICATIONS PT RESTED QUIETLY FOR REMAINDER OF ER STAY PT STATES SHE HAS A FOLLOW UP APPOINTMENT WITH DR. TALAMANTES ON 05/14/17 EMS CONTACTED FOR TRANSPORT BACK HOME, PT DID NOT BRING PORTABLE O2 WITH HER AND DOES NOT HAVE TRANSPORTATION BACK HOME PT ADVISED TO WEAR HER HOME O2 AT ALL TIMES AND TO USE HER NEBULIZER EVERY 4 HOURS, AND USE HER ADVAIR EVERY DAY PRESCRIBED. ECG Initial ECG Impression Time: 16:22 Initial ECG Rate: 74 Initial ECG Rhythm: Normal Sinus Initial ECG Comparisson: No Previous ECG Available Diagnostic Imaging Comments CXR--POOR INSPIRATION, BUT CHRONIC APPEARING CHANGES--PER RADIOLOGIST REPORT CT CHEST--NO ACUTE PROCESS, CHRONIC 5 LOBED INTERSTITIAL LUNG DISEASE--PER RADIOLOGIST REPORT AT 1815 Reviewed: Reviewed by Me Departure Impression Impression: Primary Impression: COPD exacerbation Additional Impressions: Acute bronchitis Tobacco use Disposition: 01 HOME, SELF-CARE Condition: Improved Departure-Patient Inst. Referrals: ANTOLIN TALAMANTES MD (PCP/Family) Primary Care Physician Patient Instructions: Acute Bronchitis, Adult (DC), Chronic Obstructive Pulmonary Disease (COPD), Including Emphysema Add. Discharge Instructions: HOME, REST WEAR YOUR OXYGEN AT ALL TIMES USE YOUR NEBULIZER EVERY 4 HOURS, AND YOUR ADVAIR EVERY DAY PRESCRIBED KEEP YOUR APPOINTMENT WITH DR. LACY NEXT WEEK SCHEDULED, OR SOONER IF WORSE All discharge instructions reviewed with patient and/or family. Voiced understanding. Scripts D-Methorphan Hb/Prometh HCl (Promethazine-Dm Syrup) 118 Ml Syrup 1-2 TSP PO Q4H for Cough, #120 ML Prov: DAVID HI DO 05/08/17 Benzonatate (Tessalon Perle) 100 Mg Capsule 1-2 TAB PO TID for Cough, #30 CAP Prov: DAVID HI DO 05/08/17 Prednisone (Prednisone) 5 Mg Tablet 5 MG PO UD, #78 TAB 12 PILLS DAY 1, THEN DECREASE BY 1 PILL A DAY UNTIL GONE Prov: DAVID HI DO 05/08/17 Cefdinir (Cefdinir) 300 Mg Capsule 300 MG PO BID, #20 CAP FOR INFECTION Prov: DAVID HI DO 05/08/17 Azithromycin (Zithromax) 500 Mg Tablet 500 MG PO DAILY, #5 TAB FOR INFECTION Prov: DAVID HI DO 05/08/17 DAVID HI DO May 08, 2017 18:30
[2017-05-08] MEDS ORDERED: BENZ-13 PO (18:33)
[2017-05-08] MEDS ORDERED: AZIT500T PO (18:33)
[2017-05-08] MEDS ORDERED: CEFD300C3 PO (18:33)
[2017-05-08] MEDS ORDERED: D-ME118S7 PO (18:33)
[2017-05-08] MEDS ORDERED: PRED5TAB PO (18:33)
[2017-05-08 19:03] VITALS: BP 122/69
[2017-05-09] MEDS ORDERED: AZITHROMYCIN 250 MG TAB (ZITHROMAX) PO SCH (09:00)
== END 2017-05-08 19:03 | disposition home or self-care (01) ==
LOC: EDUNIT# 15:42 → ER 15:47
DX: J44.0 Chronic obstructive pulmonary disease with (acute) lower respiratory infection (principal); J20.9 Acute bronchitis, unspecified; J44.1 Chronic obstructive pulmonary disease with (acute) exacerbation; G47.30 Sleep apnea, unspecified; I48.91 Unspecified atrial fibrillation; I25.10 Atherosclerotic heart disease of native coronary artery without angina pectoris; I10 Essential (primary) hypertension; K21.9 Gastro-esophageal reflux disease without esophagitis; E03.9 Hypothyroidism, unspecified; E66.9 Obesity, unspecified; F41.9 Anxiety disorder, unspecified; F32.9 Major depressive disorder, single episode, unspecified; F17.210 Nicotine dependence, cigarettes, uncomplicated; Z82.49 Family history of ischemic heart disease and other diseases of the circulatory system; Z79.01 Long term (current) use of anticoagulants; Z90.710 Acquired absence of both cervix and uterus; Z90.89 Acquired absence of other organs; Z68.32 Body mass index [BMI] 32.0-32.9, adult; Z86.73 Personal history of transient ischemic attack (TIA), and cerebral infarction without residual deficits; Z90.49 Acquired absence of other specified parts of digestive tract
CPT/HCPCS: 36415; 71010; 71250; 80053; 83605; 83735; 83880; 84484; 85025; 85610; 85730; 87040; 87804; 93005; 93041; 94640

== ENCOUNTER 2017-12-30 10:19 | Emergency (ER) | payer MEDICARE, BC ==
[~2017-12-30] VITALS: Ht 172.7 cm; Wt 117.9 kg
[~2017-12-30 10:19] MED LIST changes: +AZIT500T PO; +BENZ-13 PO; +CEFD300C3 PO; +D-ME118S7 PO; -NIFE-7 PO; +NIFE30TA89 PO; +PRED5TAB PO
--- OUTSIDE RECORDS SUMMARY | 2017-12-30 10:26 | XMS REPORT | Continuity of Care Document ---
Author Author [facility] Organization [facility] Address Unknown Phone Unavailable Allergies Active Description [...] Ot 414.01 CORONARY ATHEROSCLEROSIS OF [place] CORON 01/20/2013 SAMANTA MINER MD Ot 424.0 [...] ANTOLIN TALAMANTES MD Ot 786.2 COUGH 12/27/2015 NATOLIN TALAMANTES MD Ot V76.12 OTH SCREEN MAMMO-MALIGN NEOPLASM OF HAM 12/27/2015 JAMAL HARVEY DO Ot 278.00 OBESITY, NOS 12/27/2015 AJMAL HARVEY DO Ot 300.00 ANXIETY STATE NOS 12/27/2015 JAMAL HARVEY DO Ot 305.1 TOBACCO USE DISORDER 12/27/2015 JAMAL HARVEY DO Ot 427.31 ATRIAL FIBRILLATION 12/27/2015 JAMAL AHRVEY DO Ot 496 CHR AIRWAY OBSTRUCT NEC 12/27/2015 JAMAL HARVEY DO Ot 786.05 SHORTNESS OF BREATH 01/01/2016 [facility] Ot E78.2 MIXED HYPERLIPIDEMIA 01/01/2016 [facility] Ot I10 ESSENTIAL (PRIMARY) HYPERTENSION 01/01/2016 [facility] Ot I25.10 ATHSCL HEART DISEASE OF [place] CORONARY 01/01/2016 [facility] Ot I48.0 PAROXYSMAL ATRIAL FIBRILLATION 01/01/2016 SAMANTA MINER MD Ot I10 ESSENTIAL (PRIMARY) HYPERTENSION 01/01/2016 SAMANTA MINER MD Ot I25.10 ATHSCL HEART DISEASE OF [place] CORONARY 01/01/2016 SAMANTA MINER MD Ot I48.0 PAROXYSMAL ATRIAL FIBRILLATION 01/01/2016 SAMANTA MINER MD Ot J43.9 EMPHYSEMA, UNSPECIFIED 01/01/2016 SAMANTA MINER MD Ot Z72.0 TOBACCO USE 01/01/2016 SAMANTA MINER MD Ot 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 (CURRENT) USE OF ANTICOAGULANT 01/01/2016 SAMANTA MINER MD Ot Z79.899 OTHER FPC (CURRENT) DRUG THERAPY 01/09/2016 ANTOLIN TALAMANTES MD Ot V76.12 OTH SCREEN MAMMO-MALIGN NEOPLASM OF HAM 01/09/2016 JAMAL HARVEY DO Ot 278.00 OBESITY, NOS 01/09/2016 JAMAL HARVEY DO Ot 300.00 ANXIETY STATE NOS 01/09/2016 WES JAMAL GONZALES Ot 305.1 TOBACCO USE DISORDER 01/09/2016 JAMAL HARVEY DO Ot 427.31 ATRIAL FIBRILLATION 01/09/2016 JAAML HARVEY DO Ot 496 CHR AIRWAY OBSTRUCT NEC 01/09/2016 JAMAL HARVEY DO Ot 786.05 SHORTNESS OF BREATH 01/09/2016 SAMANTA MINER MD Ot I10 ESSENTIAL (PRIMARY) HYPERTENSION 01/09/2016 SAMANTA MINER MD Ot I25.10 ATHSCL HEART DISEASE OF [place] CORONARY 01/09/2016 SAMANTA MINER MD Ot I48.0 PAROXYSMAL ATRIAL FIBRILLATION 01/09/2016 SAMANTA MINER MD Ot J43.9 EMPHYSEMA, UNSPECIFIED 01/09/2016 SAMANTA MINER MD Ot Z72.0 TOBACCO USE 01/09/2016 SAMANTA MIENR MD Ot 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 (CURRENT) USE OF ANTICOAGULANT 01/09/2016 SAMANTA MINER MD Ot Z79.899 OTHER FABRICATING MACHINE OPERATOR (CURRENT) DRUG THERAPY 01/09/2016 [facility] Ot E78.2 MIXED HYPERLIPIDEMIA 01/09/2016 [facility] Ot I10 ESSENTIAL (PRIMARY) HYPERTENSION 01/09/2016 [facility] Ot I25.10 ATHSCL HEART DISEASE OF [place] CORONARY 01/09/2016 [facility] Ot I48.0 PAROXYSMAL ATRIAL FIBRILLATION 01/15/2016 [facility] Ot E78.2 MIXED HYPERLIPIDEMIA 01/15/2016 [facility] Ot I10 ESSENTIAL (PRIMARY) HYPERTENSION 01/15/2016 [facility] Ot I25.10 ATHSCL HEART DISEASE OF [place] CORONARY 01/15/2016 [facility] Ot I48.0 PAROXYSMAL ATRIAL FIBRILLATION 01/19/2016 SAMANTA MINER MD Ot I10 ESSENTIAL (PRIMARY) HYPERTENSION 01/19/2016 SAMANTA MINER MD Ot I25.10 ATHSCL HEART DISEASE OF [place] CORONARY 01/19/2016 SAMANTA MINER MD Ot I48.0 PAROXYSMAL ATRIAL FIBRILLATION 01/19/2016 SAMANTA MINER MD Ot J43.9 EMPHYSEMA, UNSPECIFIED 01/19/2016 SAMANTA MINER MD Ot Z72.0 TOBACCO USE 01/19/2016 SAMANTA MINER MD Ot Z79.01 FPC (CURRENT) USE OF ANTICOAGULANT 01/19/2016 SAMANTA MINER MD Ot Z79.899 OTHER FPC (CURRENT) DRUG THERAPY 01/19/2016 [facility] Ot E78.2 MIXED HYPERLIPIDEMIA 01/19/2016 [facility] Ot I10 ESSENTIAL (PRIMARY) HYPERTENSION 01/19/2016 [facility] Ot I25.10 ATHSCL HEART DISEASE OF [place] CORONARY 01/19/2016 [facility] Ot I48.0 PAROXYSMAL [...] I25.10 ATHSCL HEART DISEASE OF [place] CORONARY 08/01/2016 SAMANTA MINER MD Ot I48.0 PAROXYSMAL ATRIAL FIBRILLATION 08/01/2016 SAMANTA MINER MD Ot J43.9 EMPHYSEMA, UNSPECIFIED 08/01/2016 SAMANTA MINER MD Ot Z72.0 TOBACCO USE 08/01/2016 SAMANTA MINER MD Ot 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 (CURRENT) USE OF ANTICOAGULANT 08/01/2016 SAMANTA MINER MD Ot Z79.899 OTHER FABRICATING MACHINE OPERATOR (CURRENT) DRUG THERAPY 08/01/2016 [facility] Ot E78.2 MIXED HYPERLIPIDEMIA 08/01/2016 [facility] Ot I10 ESSENTIAL (PRIMARY) HYPERTENSION 08/01/2016 [facility] Ot I25.10 ATHSCL HEART DISEASE OF [place] CORONARY 08/01/2016 B[facility] Ot I48.0 PAROXYSMAL [...] I25.10 ATHSCL HEART DISEASE OF [place] CORONARY 08/08/2016 SAMANTA MINER MD Ot I48.0 PAROXYSMAL ATRIAL FIBRILLATION 08/08/2016 SAMANTA MINER MD, Ot J43.9 EMPHYSEMA, UNSPECIFIED 08/08/2016 SAMANTA MINER MD Ot Z72.0 TOBACCO USE 08/08/2016 SAMANTA MINER MD Ot 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 (CURRENT) USE OF ANTICOAGULANT 08/08/2016 SAMANTA MINER MD Ot Z79.899 OTHER FABRICATING MACHINE OPERATOR (CURRENT) DRUG THERAPY 08/08/2016 [facility] Ot E78.2 MIXED HYPERLIPIDEMIA 08/08/2016 [facility] Ot I10 ESSENTIAL (PRIMARY) HYPERTENSION 08/08/2016 [facility] Ot I25.10 ATHSCL HEART DISEASE OF [place] CORONARY 08/08/2016 [facility] Ot I48.0 PAROXYSMAL [...] I25.10 ATHSCL HEART DISEASE OF [place] CORONARY 02/08/2017 SAMANTA MINER MD Ot I27.2 OTHER SECONDARY PULMONARY HYPERTENSION 02/08/2017 SAMANTA MINER MD Ot I48.0 PAROXYSMAL ATRIAL FIBRILLATION 02/08/2017 SAMANTA MINER MD Ot I65.23 OCCLUSION AND STENOSIS OF BILATERAL [place] 02/08/2017 SAMANTA MINER MD Ot J44.9 CHRONIC OBSTRUCTIVE PULMONARY DISEASE, U 02/08/2017 KRISTOFER ANN, SAMANTA Molina Ot K21.9 GASTRO-ESOPHAGEAL REFLUX DISEASE WITHOUT 05/08/2017 DAVID HI DO Ot E03.9 HYPOTHYROIDISM, UNSPECIFIED 05/08/2017 [place]OLTON DAVID GONZALES Ot E66.9 OBESITY, UNSPECIFIED 05/08/2017 KOLTON DAVID GONZALES Ot F17.210 NICOTINE DEPENDENCE, CIGARETTES, UNCOMPL 05/08/2017 DAVID HI DO Ot F32.9 MAJOR DEPRESSIVE DISORDER, SINGLE EPISOD 05/08/2017 DAVID HI DO Ot F41.9 ANXIETY DISORDER, UNSPECIFIED 05/08/2017 DAVID HI DO Ot G47.30 SLEEP APNEA, UNSPECIFIED 05/08/2017 DAVID HI DO Ot I10 ESSENTIAL (PRIMARY) HYPERTENSION 05/08/2017 DAVID HI DO Ot I25.10 ATHSCL HEART DISEASE OF [place] CORONARY 05/08/2017 DAVID HI DO Ot I48.91 UNSPECIFIED ATRIAL FIBRILLATION 05/08/2017 DAVID HI DO Ot J20.9 ACUTE BRONCHITIS, UNSPECIFIED 05/08/2017 DAVID HI DO Ot J44.0 CHRONIC OBSTRUCTIVE PULMON DISEASE W ACU 05/08/2017 DAVID HI DO Ot J44.1 CHRONIC OBSTRUCTIVE PULMONARY DISEASE W 05/08/2017 DAVID HI DO Ot K21.9 GASTRO-ESOPHAGEAL REFLUX DISEASE WITHOUT 05/08/2017 DAVID HI DO Ot R05 COUGH 05/08/2017 DAVID HI DO Ot Z68.32 BODY MASS INDEX (BMI) 32.0-32.9, ADULT 05/08/2017 DAVID HI DO Ot Z79.01 FPC (CURRENT) USE OF ANTICOAGULANT 05/08/2017 DAVID HI DO Ot Z82.49 FAMILY HX OF ISCHEM HEART DIS AND OTH DI 05/08/2017 DAVID HI DO Ot Z86.73 PRSNL HX OF TIA (TIA), AND CEREB INFRC W 05/08/2017 DAVID HI DO Ot Z90.49 ACQUIRED ABSENCE OF OTHER SPECIFIED PART 05/08/2017 DAVID HI DO Ot Z90.710 ACQUIRED ABSENCE OF BOTH CERVIX AND UTER 05/08/2017 DAVID HI DO Ot Z90.89 ACQUIRED ABSENCE OF OTHER ORGANS Procedures Code Description Performed By Performed On [id number] EPISCOPALIAN OF CARDIAC RHYTHM, SINGLE 02/07/2017 Results Test [...] - 02/08/17 04:33 Magnesium 1.7 mg/dL 1.8-2.4 Complete blood count (CBC) with automated white blood cell (WBC) differential - 05/08/17 16:05 Blood leukocytes automated count (number/volume) 6.7 10*3/uL 4.3-11.0 Blood erythrocytes automated count (number/volume) 5.14 10*6/uL 4.35-5.85 Venous blood hemoglobin measurement (mass/volume) 15.4 g/dL 11.5-16.0 Blood hematocrit (volume fraction) 46 % 35-52 Automated erythrocyte mean corpuscular volume 89 [foz_us] 80-99 Automated erythrocyte mean corpuscular hemoglobin (mass per erythrocyte) 30 pg 25-34 Automated erythrocyte mean corpuscular hemoglobin concentration measurement ( mass/volume) 34 g/dL 32-36 Automated erythrocyte distribution width ratio 15.0 % 10.0-14.5 Automated blood platelet count (count/volume) 202 10*3/uL 130-400 Automated blood platelet mean volume measurement 11.9 [foz_us] 7.4-10.4 Automated blood neutrophils/100 leukocytes 81 % 42-75 Automated blood lymphocytes/100 leukocytes 11 % 12-44 Blood monocytes/100 leukocytes 8 % 0-12 Automated blood eosinophils/100 leukocytes 0 % 0-10 Automated blood basophils/100 leukocytes 0 % 0-10 Blood neutrophils automated count (number/volume) 5.4 10*3 1.8-7.8 Blood lymphocytes automated count (number/volume) 0.7 10*3 1.0-4.0 Blood monocytes automated count (number/volume) 0.5 10*3 0.0-1.0 Automated eosinophil count 0.0 10*3/uL 0.0-0.3 Automated blood basophil count (count/volume) 0.0 10*3/uL 0.0-0.1 PT panel in platelet poor plasma by coagulation assay - 05/08/17 16:05 Prothrombin time (PT) in platelet poor plasma by coagulation assay 14.3 s 12.2-14.7 INR in platelet poor plasma or blood by coagulation assay 1.1 0.8-1.4 Activated partial thromboplastin time (aPTT) in platelet poor plasma bycoagulation assay - 05/08/17 16:05 Activated partial thromboplastin time (aPTT) in platelet poor plasma bycoagulation assay 35 s 24-35 Blood lactic acid measurement (moles/volume) - 05/08/17 16:05 Blood lactic acid measurement (moles/volume) 3.42 mmol/L 0.50-2.00 Comprehensive metabolic panel - 05/08/17 16:05 Serum or plasma sodium measurement (moles/volume) 139 mmol/L 135-145 Serum or plasma potassium measurement (moles/volume) 3.5 mmol/L 3.6-5.0 Serum or plasma chloride measurement (moles/volume) 98 mmol/L 98-107 Carbon dioxide 28 mmol/L 21-32 Serum or plasma anion gap determination (moles/volume) 13 mmol/L 5-14 Serum or plasma urea nitrogen measurement (mass/volume) 13 mg/dL 7-18 Serum or plasma creatinine measurement (mass/volume) 1.51 mg/dL 0.60-1.30 Serum or plasma urea nitrogen/creatinine mass ratio 9 NRG Serum or plasma creatinine measurement with calculation of estimated glomerular filtration rate 34 NRG Serum or plasma glucose measurement (mass/volume) 143 mg/dL 70-105 Serum or plasma calcium measurement (mass/volume) 9.3 mg/dL 8.5-10.1 Serum or plasma total bilirubin measurement (mass/volume) 0.9 mg/dL 0.1-1.0 Serum or plasma alkaline phosphatase measurement (enzymatic activity/volume) 69 U/L 40-136 Serum or plasma aspartate aminotransferase measurement (enzymatic activity/ volume) 35 U/L 5-34 Serum or plasma alanine aminotransferase measurement (enzymatic activity/volume ) 22 U/L 0-55 Serum or plasma protein measurement (mass/volume) 7.6 g/dL 6.4-8.2 Serum or plasma albumin measurement (mass/volume) 3.9 g/dL 3.2-4.5 Magnesium - 05/08/17 16:05 Magnesium 1.6 mg/dL 1.8-2.4 Influenza virus A and B antigen detection - 05/08/17 16:05 FLU RESULT NEGATIVE FOR INFLUENZA A AND B ANTIGENS BY IA NRG Serum or plasma troponin i.cardiac measurement (mass/volume) - 05/08/17 16:05 Serum or plasma troponin i.cardiac measurement (mass/volume) < ng/ mL <0.30 Serum or plasma lithium measurement (moles/volume) - 05/08/17 16:05 BNP level 133.1 pg/mL <100.0 Bacterial blood culture - 05/08/17 16:05 QUANTITY OF GROWTH Isolated NRG Bacterial blood culture [id number] NRG Bacterial blood culture - 05/08/17 17:00 Bacterial blood culture NG NRG Serum or plasma lactate measurement (moles/volume) - 05/08/17 18:09 Serum or plasma lactate measurement (moles/volume) 1.86 mmol/L 0.50-2.00 Encounters ACCT No. Visit Date/Time Discharge Status Pt. Type Provider Facility Loc./Unit Complaint [id number] 05/08/2017 15:47:00 05/08/2017 19:03:00 DIS Emergency DAVID HI DO [facility] ER COUGH,WEAKNESS [id number] 02/06/2017 12:58:00 02/08/2017 15:20:00 DIS Inpatient SAMANTA MINER MD [facility] ICU AFIB WITH RVR [id number] 08/08/2016 13:37:00 08/29/2016 16:24:00 DIS Outpatient REG BLACK DO [facility] REHAB RIGHT SHOULDER ADHESIVE CAPSULITIS [id number] 12/29/2015 11:58:00 12/29/2015 23:59:59 CLS Outpatient BINH WEST [facility] CARD AFIB, CAD, HTN,HLP [id number] 12/27/2015 09:11:00 12/27/2015 23:59:59 CLS Outpatient SAMANTA MINER MD [facility] CATH AFIB,PALPITATIONS [id number] 04/28/2015 12:41:00 04/28/2015 14:40:00 DIS Emergency KASANDRA RIVERS MACHINIST SET UP [facility] ER COUGH [id number] 02/18/2014 00:11:00 02/18/2014 11:10:00 DIS Inpatient ANTOLIN TALAMANTES MD [facility] CSD HYPOXIA FLUID OVERLOAD LIGHTHEADED VERTIGO [id number] 05/27/2013 15:14:00 05/27/2013 23:59:59 CLS Outpatient JAMAL HARVEY DO [facility] RT COPD, EMPHYSEMA [id number] 05/05/2013 15:01:00 05/05/2013 23:59:59 CLS Outpatient ANTOLIN TALAMANTES MD [facility] RAD SCREENING [id number] 01/20/2013 12:57:00 01/20/2013 16:20:00 DIS Outpatient SAMANTA MINER MD [facility] CATH A-FIB [id number] 01/11/2013 07:46:00 01/11/2013 23:59:59 CLS Outpatient SAMANTA MINER MD [facility] RAD CP,DYSPNEA [id number] 12/31/2012 12:47:00 12/31/2012 23:59:59 CLS Outpatient SAMANTA MINER MD [facility] CARD CP,DYSPNEA [id number] 12/11/2012 10:17:00 12/11/2012 23:59:59 CLS Outpatient ANTOLIN TALAMANTES MD [facility] RAD ELEVATED COUGH, TOBACCOISM
[2017-12-30 10:56] LABS: BASOPHILS % (AUTO) 0 % (0-10); EOSINOPHILS # (AUTO) 0.2 10^3/uL (0.0-0.3); EOSINOPHILS % (AUTO) 1 % (0-10); HEMATOCRIT 40 % (35-52); HEMOGLOBIN 13.3 G/DL (11.5-16.0); LYMPHOCYTES # (AUTO) 0.7 X 10^3 (1.0-4.0); LYMPHOCYTES % (AUTO) 6 % (12-44); MEAN CORPUSCULAR HEMOGLOBIN 30 PG (25-34); MEAN CORPUSCULAR HGB CONC 33 G/DL (32-36); MEAN CORPUSCULAR VOLUME 91 FL (80-99); MEAN PLATELET VOLUME 12.3 FL (7.4-10.4); MONOCYTES # (AUTO) 0.5 X 10^3 (0.0-1.0); MONOCYTES % (AUTO) 4 % (0-12); NEUTROPHILS % (AUTO) 88 % (42-75); PLATELET COUNT 168 10^3/uL (130-400); RED BLOOD COUNT 4.37 10^6/uL (4.35-5.85); RED CELL DISTRIBUTION WIDTH 14.4 % (10.0-14.5); WHITE BLOOD COUNT 11.4 10^3/uL (4.3-11.0)
[2017-12-30 11:20] LABS: ALANINE AMINOTRANSFERASE 22 U/L (0-55); ALBUMIN 3.6 GM/DL (3.2-4.5); ALKALINE PHOSPHATASE 77 U/L (40-136); BILIRUBIN,TOTAL 0.7 MG/DL (0.1-1.0); BUN/CREATININE RATIO 12; CARBON DIOXIDE 20 MMOL/L (21-32); CHLORIDE 111 MMOL/L (98-107); CREATININE SERUM 0.86 MG/DL (0.60-1.30); GFR ESTIMATED > 60; GLUCOSE 127 MG/DL (70-105); POTASSIUM 3.5 MMOL/L (3.6-5.0); SODIUM 143 MMOL/L (135-145); TOTAL PROTEIN 6.3 GM/DL (6.4-8.2)
[2017-12-30 11:21] LABS: INR 1.4 (0.8-1.4); PROTHROMBIN TIME PATIENT 17.4 SEC (12.2-14.7)
--- NOTE | 2017-12-30 11:29 | ED General ---
General Chief Complaint: Neurological Problems Stated Complaint: FALL Nursing Triage Note: TO ED PER EMS FROM HOME WAS FOUND ON FLOOR BETWEEN BED AND WALL. NO ONE ELSE IN HOUSE AND 911 CALL CAME FROM HER. Nursing Sepsis Screen: No Definite Risk Source of Information: Patient Exam Limitations: Physical Impairments History of Present Illness Date Seen by Provider: Dec 30, 2017 Time Seen by Provider: 10:20 Initial Comments Here with report by EMS of altered mental status and being found on the floor between her bed and the wall. Apparently she was able to call 911 and they were able to hear breathing but nothing else. EMS was dispatched for welfare check as well as emergency services. She was found on the floor. Patient reports that she's been there for 2 days but maybe up to a week. She is confused and difficult to understand. His coughing and short of breath. Patient is a smoker but not much other history is able to be obtained from her. She denies injury but states she is hurting all over. She states this is chronic. Timing/Duration: Other Severity: Moderate Modifying Factors: worse with Medication Associated Systoms: Cough; No Nausea/Vomiting; Shortness of Air, Weakness Allergies and Home Medications Allergies Uncoded Allergies: PCN,Codiene,Iodine,IVP Dye, Nylon, Metal, bandaids (Allergy, Unknown, ) Home Medications Acetaminophen 500 Mg Tablet, 1,000 MG PO Q6H PRN for PAIN-MILD, (Reported) TAKES 2 (500MG) TABLET Albuterol Sulfate 1 Puff Puff, 1 PUFF IH Q4H PRN for SHORTNESS OF BREATH, ( Reported) 1 PUFF = 90 MCG Albuterol Sulfate 0.63 Mg/3 Ml Vial.neb, 0.63 MG NEB Q4H PRN for SHORTNESS OF BREATH, (Reported) Amiodarone HCl 100 Mg Tablet, 100 MG PO DAILY Prescribed by: Rich PHIPPS on 02/08/17 1235 Apixaban 5 Mg Tablet, 5 MG PO BID, (Reported) Azithromycin 500 Mg Tablet, 500 MG PO DAILY FOR INFECTION Prescribed by: DAVID HI on 05/08/17 1833 Benzonatate 100 Mg Capsule, 100 MG PO TID Prescribed by: HALIMA DE PAZ on 02/08/17 0819 Benzonatate 100 Mg Capsule, 1-2 TAB PO TID Prescribed by: DAVID HI on 05/08/171832 Cefdinir 300 Mg Capsule, 300 MG PO BID FOR INFECTION Prescribed by: DAVID HI on 05/08/171832 Cyanocobalamin (Vitamin B-12) 1,000 Mcg Tablet, 1,000 MCG PO WEEK PRN for ENERGY , (Reported) D-Methorphan Hb/Prometh HCl 118 Ml Syrup, 1-2 TSP PO Q4H Prescribed by: DAVID HI on 05/08/171832 Escitalopram Oxalate 20 Mg Tablet, 20 MG PO DAILY, (Reported) Esomeprazole Magnesium 20 Mg Tablet.dr, 20-40 MG PO DAILY, (Reported) Fluticasone/Salmeterol 1 Each Blst.w.dev, 1 PUFF INH BID PRN for SHORTNESS OF BREATH, (Reported) Levothyroxine Sodium 125 Mcg Tablet, 125 MCG PO DAILY, (Reported) Nifedipine 30 Mg Tablet.er, 30 MG PO DAILY PRN for BP ABOVE 240/130, (Reported) Nitroglycerin 0.4 Mg Tab.subl, 0.4 MG PO UD PRN for CHEST PAIN, (Reported) Nystatin 60 Gm Powder, TOP BID PRN for GAULDING, (Reported) Olmesartan/Hydrochlorothiazide 1 Each Tablet, 1 TAB PO DAILY, (Reported) Oxycodone HCl/Acetaminophen 1 Each Tablet, 0.5-1 TAB PO Q6H PRN for PAIN- MODERATE, (Reported) Prednisone 10 Mg Tab.ds.pk, 10 MG PO DAILY Take 6 tabs(60mg)daily,decrease by 1 tab(10MG)daily. Prescribed by: HALIMA DE PAZ on 02/08/17 1243 Prednisone 5 Mg Tablet, 5 MG PO UD 12 PILLS DAY 1, THEN DECREASE BY 1 PILL A DAY UNTIL GONE Prescribed by: DAVID HI on 05/08/171832 Patient Home Medication List Home Medication List Reviewed: Yes Review of Systems Constitutional: see HPI, fever, weakness Respiratory: cough, short of breath Gastrointestinal: No nausea, No vomiting Unable to complete review of systems due to altered mental status Past Shnvfju-Aofjiq-Dlvkvt Hx Past Med/Social Hx: Reviewed Nursing Past Med/Soc Hx Patient Social History Alcohol Use: Denies Use Recreational Drug Use: No Smoking Status: Current Everyday Smoker Type Used: Cigarettes Former Smoker, Quit: Apr 18, 2017 Recent Foreign Travel: No Contact w/Someone Who Travel: No Recent Infectious Disease Expo: No Recent Hopitalizations: No Immunizations Up To Date Tetanus Booster (TDap): Unknown PED Vaccines UTD: No Date of Pneumonia Vaccine: Jan 20, 2011 Date of Influenza Vaccine: Feb 20, 2012 Seasonal Allergies Seasonal Allergies: Yes Past Medical History Surgeries: Yes (WEDGE RESECTION, BREAST REDUCTION) Abdominal, Appendectomy, Breast, Gallbladder, Hysterectomy, Orthopedic, Tonsillectomy Respiratory: Yes Chronic Bronchitis, Sleep Apnea, COPD, Emphysema Currently Using CPAP: No Cardiac: Yes Atrial Fibrillation, Coronary Artery Disease, Hypertension Neurological: Yes (pt reports having "small stroke" in -NO RESIDUAL) Stroke Reproductive Disorders: No Genitourinary: Yes (STRESS INCONTINENCE) Gastrointestinal: Yes Gastroesophageal Reflux Musculoskeletal: No Endocrine: Yes (HYPOGLYCEMIA, OBESITY) Hypothyroidsim HEENT: No Cancer: No Psychosocial: Yes Anxiety, Depression Integumentary: No Blood Disorders: No Adverse Reaction/Blood Tranf: No Family Medical History Reviewed Nursing Family Hx Cardiovascular disease 19 FATHER 19 MOTHER Diabetes mellitus 19 MOTHER G8 BROTHER G8 SISTER Drug abuse G8 BROTHER G8 SISTER FH: lupus erythematosus Hypercholesterolemia 19 FATHER 19 MOTHER Hypertension 19 FATHER 19 MOTHER Myocardial infarction 19 FATHER 19 MOTHER Physical Exam-Suspected Sepsis Physical Exam Vital Signs Vital Signs - First Documented 12/30/17 10:19 Temp 99.2 Pulse 65 Resp 18 B/P (MAP) 193/100 (131) Pulse Ox 95 O2 Delivery Room Air O2 Flow Rate 2.00 Capillary Refill : Less Than 3 Seconds Blood Pressure Mean: 131 Height, Weight, BMI Height: 5'8.00" Weight: 260lbs. 5.0oz. [id number]; 39.3 BMI Method:Estimated General Appearance: Mild Distress, Obese HEENT: PERRL/EOMI, Pharynx Normal Neck: Non Tender, Supple (and pinpoint pupils) Respiratory: Decreased Breath Sounds, Expiration, Wheezing Cardiovascular: Regular Rate, Rhythm, No Murmur Gastrointestinal: Non Tender, Soft Back: Normal Inspection, No CVA Tenderness, No Vertebral Tenderness Extremity: Normal Capillary Refill, Non Tender, No Calf Tenderness Neurologic/Psychiatric: Disoriented, Motor Weakness (global), Other (garbled speech) Skin: normal color, warm/dry Focused Exam Lactate Level 12/30/17 11:00: Lactic Acid Level 1.36 Lactic Acid Level Laboratory Tests Test 12/30/17 11:00 Lactic Acid Level 1.36 MMOL/L (0.50-2.00) Progress/Results/Core Measures Suspected Sepsis Recent Fever Within 48 Hours: No Infection Criteria Present: Suspected New Infection New/Unexplained Altered Menta: Yes Sepsis Screen: No Definite Risk SIRS Temperature:99.2 Pulse: 65 Respiratory Rate: 18 Laboratory Tests 12/30/17 10:40: White Blood Count 11.4H Blood Pressure 193 /100 Mean: 131 12/30/17 11:00: Lactic Acid Level 1.36 Laboratory Tests 12/30/17 10:40: Creatinine 0.86, Platelet Count 168, Total Bilirubin 0.7 12/30/17 11:00: INR Comment 1.4 Results/Orders Lab Results Laboratory Tests Test 12/30/17 10:40 12/30/17 11:00 12/30/17 11:38 Range/Units White Blood Count 11.4 H 4.3-11.0 10^3/uL Red Blood Count 4.37 4.35-5.85 10^6/uL Hemoglobin 13.3 11.5-16.0 G/DL Hematocrit 40 35-52 % Mean Corpuscular Volume 91 80-99 FL Mean Corpuscular Hemoglobin 30 25-34 PG Mean Corpuscular Hemoglobin Concent 33 32-36 G/DL Red Cell Distribution Width 14.4 10.0-14.5 % Platelet Count 168 130-400 10^3/uL Mean Platelet Volume 12.3 H 7.4-10.4 FL Neutrophils (%) (Auto) 88 H 42-75 % Lymphocytes (%) (Auto) 6 L 12-44 % Monocytes (%) (Auto) 4 0-12 % Eosinophils (%) (Auto) 1 0-10 % Basophils (%) (Auto) 0 0-10 % Neutrophils # (Auto) 10.0 H 1.8-7.8 X 10^3 Lymphocytes # (Auto) 0.7 L 1.0-4.0 X 10^3 Monocytes # (Auto) 0.5 0.0-1.0 X 10^3 Eosinophils # (Auto) 0.2 0.0-0.3 10^3/uL Basophils # (Auto) 0.0 0.0-0.1 10^3/uL Neutrophils % (Manual) 92 % Lymphocytes % (Manual) 2 % Monocytes % (Manual) 3 % Eosinophils % (Manual) 2 % Band Neutrophils 1 % Blood Morphology Comment NORMAL Sodium Level 143 135-145 MMOL/L Potassium Level 3.5 L 3.6-5.0 MMOL/L Chloride Level 111 H 98-107 MMOL/L Carbon Dioxide Level 20 L 21-32 MMOL/L Anion Gap 12 5-14 MMOL/L Blood Urea Nitrogen 10 7-18 MG/DL Creatinine 0.86 0.60-1.30 MG/DL Estimat Glomerular Filtration Rate > 60 BUN/Creatinine Ratio 12 Glucose Level 127 H 70-105 MG/DL Calcium Level 9.0 8.5-10.1 MG/DL Corrected Calcium 9.3 8.5-10.1 MG/DL Total Bilirubin 0.7 0.1-1.0 MG/DL Aspartate Amino Transf (AST/SGOT) 29 5-34 U/L Alanine Aminotransferase (ALT/SGPT) 22 0-55 U/L Alkaline Phosphatase 77 40-136 U/L Total Protein 6.3 L 6.4-8.2 GM/DL Albumin 3.6 3.2-4.5 GM/DL Prothrombin Time 17.4 H 12.2-14.7 SEC INR Comment 1.4 0.8-1.4 Activated Partial Thromboplast Time 30 24-35 SEC Lactic Acid Level 1.36 0.50-2.00 MMOL/L Urine Color YELLOW Urine Clarity SLIGHTLY CLOUDY Urine pH 5 5-9 Urine Specific [place] 1.020 1.016-1.022 Urine Protein 2+ H NEGATIVE Urine Glucose (UA) NEGATIVE NEGATIVE Urine Ketones NEGATIVE NEGATIVE Urine Nitrite NEGATIVE NEGATIVE Urine Bilirubin NEGATIVE NEGATIVE Urine Urobilinogen NORMAL NORMAL MG/DL Urine Leukocyte Esterase NEGATIVE NEGATIVE Urine RBC (Auto) NEGATIVE NEGATIVE Urine RBC 0-2 /HPF Urine WBC NONE /HPF Urine Squamous Epithelial Cells RARE /HPF Urine Crystals NONE /LPF Urine Bacteria TRACE /HPF Urine Casts PRESENT /LPF Urine Hyaline Casts RARE /LPF Urine Mucus SMALL H /LPF Urine Culture Indicated NO My Orders Orders - YISEL MORALES MD Ct Head Wo (12/30/17 10:26) Cbc With Automated Diff (12/30/17 10:26) Comprehensive Metabolic Panel (12/30/17 10:26) Blood Culture (12/30/17 10:26) Sputum Culture (12/30/17 10:26) Urinalysis (12/30/17 10:26) Urine Culture (12/30/17 10:26) Protime With Inr (12/30/17 10:26) Partial Thromboplastin Time (12/30/17 10:26) Chest 1 View, Ap/Pa Only (12/30/17 10:26) Saline Lock/Iv-Start (12/30/17 10:26) Saline Lock/Iv-Start (12/30/17 10:26) Vital Signs Adult Sepsis Patie Q15M (12/30/17 10:26) O2 (12/30/17 10:26) Remove Rings In Anticipation O (12/30/17 10:26) Lactic Acid Analyzer (12/30/17 10:26) Manual Differential (12/30/17 10:40) Albuterol/Ipra Inhalation Soln (Duoneb I (12/30/17 11:30) Svn Small Volume Nebulizer (12/30/17 11:20) Ns (Ivpb) (Sodium C... W/Nicardipine Iv (12/30/17 12:00) Human Prothrombin Complx(Pcc) (Kcentra K (12/30/17 13:15) Human Prothrombin Complx(Pcc) (Kcentra K (12/30/17 13:15) Ns (Ivpb) (Sodium Chloride 0.9%) (12/30/17 13:08) Medications Given in ED Current Medications Medications Dose Ordered Sig/Lorena Route Start Time Stop Time Status Last Admin Dose Admin Prothrombin Complex Concent (Human) 5,000 unit ONCE ONCE IV 12/30/17 13:15 12/30/17 13:16 DC 12/30/17 13:17 5,000 UNIT Sodium Chloride 250 ml @ ud STK-MED ONCE .ROUTE 12/30/17 13:08 12/30/17 13:14 DC 12/30/17 13:17 250 MLS/HR Vital Signs/I&O 12/30/17 12/30/17 10:19 10:19 Temp 99.2 Pulse 65 Resp 18 B/P (MAP) 193/100 (131) Pulse Ox 95 O2 Delivery Room Air Nasal Cannula O2 Flow Rate 2.00 Capillary Refill : Less Than 3 Seconds Blood Pressure Mean: 131 Progress Note : Progress Note Seen and evaluated. IV, labs, UA, blood cultures, lactic acid, x-ray and CT head ordered. Jamalo hansa ordered. Monitor patient. 1145: Notified of intraventricular bleed on CT scan of head on the left side. No subarachnoid extension and radiology does not believe this is aneurysmal but more related to hypertension. She will require transfer due to the bleeding. 1154: Order for Cardene drip as patient's blood pressure elevated at 180s over 82. She is still somewhat confused. Initiated transfer call with [facility] in [facility]. 1214: I have discussed the case with the neurologist on-call at [place], Dr. Domingo. We have clouded the films there. There is concern related to the position of the bleeding that this may have aneurysmal component. Also concerned related to the amount of blood and the possibility of intraventricular TPA requirement. They were very helpful but are concerned that this exceeds their level and that they would have to further transfer this patient to . Overall it was decided that we would initiate transfer directly to as the most appropriate place with the capability to handle this type of patient. 1215: I have initiated transfer proceedings with and am awaiting call back from neurology office communication professor. 1225: I have talked to The Triage Nurse Who Has Talked with Dr. Owens. He has accepted the patient in transfer. We are working on whether EMS via flight or ambulance will be required. 1235: Flight crew will be able to take the patient that will have to lift from the airport and will require EMS transport to the airport. This is being arranged. Blood pressure is improving but is 158/75. We're continuing Cardene drip and are increasing that now. We're unable to get a hold of patient family currently but are still trying. Emergent transfer to due to intracranial bleed. Patient will go by air due to emergent nature of condition. 1250: [facility] called back and are requesting K[facility]. This will be initiated. 1256: EMS here. Pharmacy is here and is helping mixup the Kcentra. This will be given in route. 1330: Patient is receiving Kcentra now and is in route to airport via EMS. Helicopter is approximately 15 minutes from airport as well. Report given to EMS by me. All questions answered prior to departure. Diagnostic Imaging Diagonstic Imaging: CT Plain Films/CT/US/NM/MRI: head [facility]. [place], [place] NAME: LING RINALDI [facility] REC#: [id number] PT STATUS: REG ER : 1940 PHYSICIAN: YISEL MORALES MD ADMIT DATE: 12/30/17/ER Draft Date of Exam:12/30/17 CT HEAD WO PROCEDURE: CT head without contrast. TECHNIQUE: Multiple contiguous axial images were obtained through the brain without the use of intravenous contrast. INDICATION: Confusion after fall. FINDINGS: There is a focal hemorrhage in the left thalamus with extension into the left lateral ventricle. There are also blood products in the third ventricle and to a lesser degree frontal horns bilaterally. There is some atrophy and chronic microvascular ischemic disease. There is no subdural or epidural blood. Calvarium is intact. Visualized paranasal sinuses are clear. There is fluid in left mastoid air cells. Right mastoid air cells are clear. IMPRESSION: 1. Focal left thalamic hemorrhage with intraventricular extension as described. There is a moderate amount of cece-hemorrhage edema. 2. Atrophy and some chronic microvascular ischemic disease. Dictated on workstation # [id number] Dict: 12/30/17 1137 Trans: 12/30/17 1150 [id number] Interpreted by: PAOLA SILVEIRA MD Electronically signed by: Diagonstic Imaging: Xray Plain Films/CT/US/NM/MRI: chest Comments VIA [facility], [facility]. [place], [place] NAME: LING RINALDI [facility] REC#: [id number] PT STATUS: REG ER : 1940 PHYSICIAN: YISEL MORALES MD ADMIT DATE: 12/30/17/ER Draft Date of Exam:12/30/17 CHEST 1 VIEW, AP/PA ONLY INDICATION: Fall. Comparison made with prior examination 05/08/2017. FINDINGS: There is cardiomegaly. There is moderate central pulmonary venous congestion. There is no pleural effusion or pneumothorax. Mediastinum is unremarkable. IMPRESSION: Cardiomegaly and moderate central pulmonary venous congestion. Dictated on workstation # [id number] Dict: 12/30/17 1149 Trans: 12/30/17 1151 [facility] [id number] Interpreted by: PAOLA SILVEIRA MD Electronically signed by: Critical Care Note Critical Care Start Time: 10:20 Stop Time: 13:30 Total Time (minutes) 60 Departure Impression Primary Impression: Intracranial hemorrhage Additional Impression: Hypertension, uncontrolled Disposition: 02 XFER SHT-TRM HOSP Condition: Critical Transfer Time Spoke to Accepting Phy: 12:25 Transfer Time: 13:30 Transfer Facility: [facility], Dr. Owens accepting. Method of Transfer: Air Departure-Patient Inst. Referrals: ANTOLIN TALAMANTES MD (PCP/Family) Primary Care Physician YISEL MORALES MD Dec 30, 2017 11:29
[2017-12-30] MEDS ORDERED: RT-ALBUTEROL/IPRATROPIUM 3 ML (DUONEB) VIAL INH ONE (11:30)
[2017-12-30 11:42] LABS: BAND NEUTROPHILS 1 %; EOSINOPHILS % (MANUAL) 2 %; LYMPHOCYTES % (MANUAL) 2 %; MONOCYTES % (MANUAL) 3 %; NEUTROPHILS % (MANUAL) 92 %; RBC MORPH NORMAL
[2017-12-30 11:49] LABS: BILIRUBIN,URINE NEGATIVE (NEGATIVE); CLARITY,URINE SLIGHTLY CLOUDY; COLOR,URINE YELLOW; GLUCOSE, URINE (UA) NEGATIVE (NEGATIVE); KETONES,URINE NEGATIVE (NEGATIVE); LEUKOCYTE ESTERASE ,URINE NEGATIVE (NEGATIVE); NITRITE,URINE NEGATIVE (NEGATIVE); PH,URINE 5 (5-9); PROTEIN,URINE 2+ (NEGATIVE); UROBILINOGEN,URINE NORMAL (NORMAL)
--- NOTE | 2017-12-30 11:51 | Diagnostic Imaging Report ---
PROCEDURE: CT head without contrast. TECHNIQUE: Multiple contiguous axial images were obtained through the brain without the use of intravenous contrast. INDICATION: Confusion after fall. FINDINGS: There is a focal hemorrhage in the left thalamus with extension into the left lateral ventricle. There are also blood products in the third ventricle and to a lesser degree frontal horns bilaterally. There is some atrophy and chronic microvascular ischemic disease. There is no subdural or epidural blood. Calvarium is intact. Visualized paranasal sinuses are clear. There is fluid in left mastoid air cells. Right mastoid air cells are clear. IMPRESSION: 1. Focal left thalamic hemorrhage with intraventricular extension as described. There is a moderate amount of cece-hemorrhage edema. 2. Atrophy and some chronic microvascular ischemic disease. Dictated by: Dictated on workstation # [id number]
--- NOTE | 2017-12-30 11:52 | Diagnostic Imaging Report ---
INDICATION: Fall. Comparison made with prior examination 05/08/2017. FINDINGS: There is cardiomegaly. There is moderate central pulmonary venous congestion. There is no pleural effusion or pneumothorax. Mediastinum is unremarkable. IMPRESSION: Cardiomegaly and moderate central pulmonary venous congestion. Dictated by: Dictated on workstation # [id number]
[2017-12-30] MEDS ORDERED: niCARdipine IV 50 MG in NS (IVPB) 230 ML IV SCH (12:00)
[2017-12-30 12:03] LABS: BACTERIA,URINE TRACE /HPF; HYALINE CASTS, URINE RARE /LPF; RBC,URINE 0-2 /HPF; SQUAMOUS EPITHELIAL CELL,UR RARE /HPF
[2017-12-30] MEDS ORDERED: NS (IVPB) 250 ML ONE (13:08)
[2017-12-30] MEDS ORDERED: HUMAN PROTHROMBIN COMPLX(PCC) 500 UNIT (KCENTRA) IV NR (13:15)
[2017-12-30] MEDS ORDERED: HUMAN PROTHROMBIN COMPLX(PCC) 500 UNIT (KCENTRA) IV ONE (13:15)
[2017-12-30 13:28] VITALS: BP 126/94
== END 2017-12-30 13:28 | disposition short-term general hospital (02) ==
LOC: EDUNIT# 10:19 → ER 10:20
DX: I62.9 Nontraumatic intracranial hemorrhage, unspecified (principal); I10 Essential (primary) hypertension; F17.210 Nicotine dependence, cigarettes, uncomplicated; J43.9 Emphysema, unspecified; I25.10 Atherosclerotic heart disease of native coronary artery without angina pectoris; I48.91 Unspecified atrial fibrillation; K21.9 Gastro-esophageal reflux disease without esophagitis; E03.9 Hypothyroidism, unspecified; E66.9 Obesity, unspecified; F41.9 Anxiety disorder, unspecified; F32.9 Major depressive disorder, single episode, unspecified; Z86.73 Personal history of transient ischemic attack (TIA), and cerebral infarction without residual deficits; Z90.49 Acquired absence of other specified parts of digestive tract; Z90.710 Acquired absence of both cervix and uterus; Z90.89 Acquired absence of other organs; Z88.0 Allergy status to penicillin; Z88.6 Allergy status to analgesic agent; Z91.041 Radiographic dye allergy status
CPT/HCPCS: 36415; 51702; 70450; 71045; 80053; 81000; 83605; 85007; 85027; 85610; 85730; 87040; 87088